=== PATIENT | female | born 1955 | race Caucasian/White ===

== ENCOUNTER 2017-06-23 10:39 | Inpatient (IN) | payer MEDICAID ==
[2017-06-23] MEDS: LIDOCAINE/MYLANTA 40 ML BTL PO (11:09)
[2017-06-23] MEDS: ONDANSETRON 4 MG INJ IV ×2 (11:09→19:51)
[2017-06-23] MEDS: morphine 4 MG/ML VIAL IV (11:09)
[2017-06-23 11:15] LABS: ADD MAN DIFF? NO
[2017-06-23 11:18] LABS: BASOPHIL # 0.1 10^3/ul (0.0-0.1); BASOPHILS % 0.5 % (0.0-2.0); EOSINOPHILS # 0.1 10^3/ul (0.0-0.5); EOSINOPHILS % 0.5 % (0.0-7.0); HEMATOCRIT 38.6 % (37.0-47.0); HEMOGLOBIN 13.4 g/dl (12.0-16.0); LYMPHOCYTES # 1.2 10^3/ul (0.8-2.9); LYMPHOCYTES % 10.6 % (15.0-51.0); MEAN CORPUSCULAR HEMOGLOBIN 29.6 pg (29.0-33.0); MEAN CORPUSCULAR HGB CONC 34.7 g/dl (32.0-37.0); MEAN CORPUSCULAR VOLUME 85.4 fl (82.0-101.0); MEAN PLATELET VOLUME 10.9 fl (7.4-10.4); MONOCYTE # 0.5 10^3/ul (0.3-0.9); MONOCYTES % 4.2 % (0.0-11.0); NEUTROPHIL # 9.2 10^3/ul (1.6-7.5); NEUTROPHILS % 83.8 % (39.0-77.0); PLATELET COUNT 344 10^3/UL (140-415); RED BLOOD COUNT 4.52 10^6/ul (4.20-5.40); RED CELL DISTRIBUTION WIDTH 12.8 % (11.5-14.5)
[2017-06-23 11:18] LABS: WHITE BLOOD COUNT 10.9 10^3/ul (4.8-10.8)
[2017-06-23 11:40] LABS: ALANINE AMINOTRANSFERASE 35 IU/L (13-69); ALBUMIN 4.7 g/dl (3.3-4.9); ALKALINE PHOSPHATASE 140 IU/L (42-121); ANION GAP 17 (8-16); ASPARTATE AMINO TRANSFERASE 23 IU/L (15-46); BILIRUBIN,INDIRECT 0.4 mg/dl (0-1.1); BILIRUBIN,TOTAL 0.4 mg/dl (0.2-1.3); BLOOD UREA NITROGEN 10 mg/dl (7-20); CALCIUM 10.3 mg/dl (8.4-10.2); CARBON DIOXIDE 29 mmol/L (21-31); CHLORIDE 99 mmol/L (97-110); GLUCOSE 252 mg/dl (70-220); POTASSIUM 3.7 mmol/L (3.5-5.1); SODIUM 141 mmol/L (135-144); TOTAL PROTEIN 8.6 g/dl (6.1-8.1)
[2017-06-23 11:46] LABS: ADD UMIC YES; UR ASCORBIC ACID 20 mg/dL (NEGATIVE); UR BACTERIA FEW /HPF (NONE SEEN); UR BILIRUBIN (Dip) NEGATIVE (NEGATIVE); UR BLOOD (Dip) NEGATIVE (NEGATIVE); UR CLARITY SLIGHTLY CLOUDY (CLEAR); UR COLOR YELLOW (YELLOW); UR GLUCOSE (Dip) 1+ mg/dL (NEGATIVE); UR KETONES (Dip) NEGATIVE (NEGATIVE); UR LEUKOCYTE ESTERASE (Dip) NEGATIVE Leu/ul (NEGATIVE); UR MUCUS FEW /HPF (NONE SEEN); UR NITRITE (Dip) NEGATIVE (NEGATIVE); UR RBC 1 /HPF (0-5); UR SPECIFIC GRAVITY (Dip) 1.016 (1.003-1.030); UR TOTAL PROTEIN (Dip) 1+ mg/dl (NEGATIVE); UR UROBILINOGEN (Dip) NEGATIVE (NEGATIVE); UR WBC 1 /HPF (0-5)
[2017-06-23 12:00] LABS: LIPASE 3925 U/L (23-300); TROPONIN-I < 0.012 ng/ml (0.00-0.12)
[2017-06-23] MEDS: SOD CHLORIDE 0.9% 1,000 ML IV ×3 (12:13→22:13)
[2017-06-23] MEDS ORDERED: ACETAMINOPHEN 325 MG TAB PO (13:00)
[2017-06-23] MEDS ORDERED: ONDANSETRON 4 MG INJ IV (13:00)
[2017-06-23] MEDS: HYDROmorphONE 1 MG/ML SYG IV (13:44)
[2017-06-23] MEDS: morphine 2 MG INJ IV ×2 (19:49→23:54)
[2017-06-23] MEDS: FAMOTIDINE 20 MG INJ IV (20:33)
[2017-06-23] MEDS: DOCUSATE SODIUM 100 MG CAP PO (20:35)
[2017-06-24] MEDS: ONDANSETRON 4 MG INJ IV ×3 (02:27→20:19)
[2017-06-24] MEDS: morphine 2 MG INJ IV ×5 (04:03→22:33)
[2017-06-24] MEDS: SOD CHLORIDE 0.9% 1,000 ML IV ×3 (05:30→20:17)
[2017-06-24] MEDS: hydrALAzine 20 MG INJ IV ×2 (05:34→20:26)
[2017-06-24 05:44] LABS: ADD MAN DIFF? NO
[2017-06-24 05:46] LABS: WHITE BLOOD COUNT 12.9 10^3/ul (4.8-10.8)
[2017-06-24 05:46] LABS: BASOPHILS % 0.3 % (0.0-2.0); EOSINOPHILS % 0.1 % (0.0-7.0); HEMATOCRIT 37.1 % (37.0-47.0); HEMOGLOBIN 12.8 g/dl (12.0-16.0); LYMPHOCYTES # 1.1 10^3/ul (0.8-2.9); LYMPHOCYTES % 8.8 % (15.0-51.0); MEAN CORPUSCULAR HEMOGLOBIN 29.6 pg (29.0-33.0); MEAN CORPUSCULAR HGB CONC 34.5 g/dl (32.0-37.0); MEAN CORPUSCULAR VOLUME 85.9 fl (82.0-101.0); MEAN PLATELET VOLUME 11.1 fl (7.4-10.4); MONOCYTE # 0.6 10^3/ul (0.3-0.9); MONOCYTES % 4.3 % (0.0-11.0); NEUTROPHIL # 11.1 10^3/ul (1.6-7.5); NEUTROPHILS % 86.1 % (39.0-77.0); PLATELET COUNT 311 10^3/UL (140-415); RED BLOOD COUNT 4.32 10^6/ul (4.20-5.40); RED CELL DISTRIBUTION WIDTH 12.5 % (11.5-14.5)
[2017-06-24 06:29] LABS: AMYLASE 178 U/L (11-123); ANION GAP 16 (8-16); BLOOD UREA NITROGEN 7 mg/dl (7-20); CALCIUM 9.1 mg/dl (8.4-10.2); CARBON DIOXIDE 26 mmol/L (21-31); CHLORIDE 99 mmol/L (97-110); CHOL/HDL RATIO 4.5 RATIO; CHOLESTEROL 215 mg/dl (100-200); GLUCOSE 183 mg/dl (70-220); HDL CHOLESTEROL 47 mg/dl (35-98); LDL CHOLESTEROL,CALCULATED 152 mg/dl; MAGNESIUM 1.7 mg/dl (1.7-2.5); PHOSPHORUS 3.3 mg/dl (2.5-4.9); POTASSIUM 3.5 mmol/L (3.5-5.1); SODIUM 137 mmol/L (135-144); TRIGLYCERIDES 79 mg/dl (0-149)
[2017-06-24 07:25] LABS: HEMOGLOBIN A1C 7.5 % (0-5.9)
[2017-06-24] MEDS: DOCUSATE SODIUM 100 MG CAP PO ×2 (09:00→20:13)
[2017-06-24] MEDS: FAMOTIDINE 20 MG INJ IV ×2 (09:24→20:18)
[2017-06-24] MEDS: MULTIVITAMINS 10 ML, THIAMINE 100 MG, FOLIC ACID 1 MG in SOD CHLORIDE 0.9% 1,000 ML IVPB (09:35)
[2017-06-24 14:09] LABS: LIPASE 1171 U/L (23-300)
[2017-06-24] MEDS ORDERED: GLUCOSE GEL 15 GRAM TUBE PO ×2 (14:30)
[2017-06-24] MEDS ORDERED: DEXTROSE 50% 50 ML SYRINGE IV ×2 (14:30)
[2017-06-24] MEDS ORDERED: GLUCAGON 1 MG INJ IM (14:30)
[2017-06-24] MEDS ORDERED: GLUCOSE GEL 15 GRAM TUBE BUCCAL (14:30)
[2017-06-24] MEDS: INSULIN ASPART [NOVOLOG] 3 ML PEN SC ×2 (17:01→20:23)
[2017-06-25] MEDS: INSULIN ASPART [NOVOLOG] 3 ML PEN SC ×6 (01:06→20:26)
[2017-06-25] MEDS ORDERED: ACCU-CHEK XX (02:00)
[2017-06-25] MEDS: ONDANSETRON 4 MG INJ IV (04:05)
[2017-06-25] MEDS: SOD CHLORIDE 0.9% 1,000 ML IV ×2 (04:05→13:30)
[2017-06-25 07:10] LABS: ADD MAN DIFF? NO
[2017-06-25 07:16] LABS: BASOPHILS % 0.3 % (0.0-2.0); EOSINOPHILS % 0.1 % (0.0-7.0); HEMATOCRIT 35.7 % (37.0-47.0); HEMOGLOBIN 12.4 g/dl (12.0-16.0); LYMPHOCYTES # 1.9 10^3/ul (0.8-2.9); LYMPHOCYTES % 15.1 % (15.0-51.0); MEAN CORPUSCULAR HEMOGLOBIN 29.5 pg (29.0-33.0); MEAN CORPUSCULAR HGB CONC 34.7 g/dl (32.0-37.0); MEAN PLATELET VOLUME 11.1 fl (7.4-10.4); NEUTROPHIL # 9.8 10^3/ul (1.6-7.5); NEUTROPHILS % 76.2 % (39.0-77.0); PLATELET COUNT 304 10^3/UL (140-415); RED CELL DISTRIBUTION WIDTH 12.8 % (11.5-14.5)
[2017-06-25 07:16] LABS: WHITE BLOOD COUNT 12.8 10^3/ul (4.8-10.8)
[2017-06-25 07:31] LABS: AMYLASE 62 U/L (11-123); ANION GAP 12 (8-16); BLOOD UREA NITROGEN 11 mg/dl (7-20); CALCIUM 9.1 mg/dl (8.4-10.2); CARBON DIOXIDE 27 mmol/L (21-31); CHLORIDE 98 mmol/L (97-110); CREATININE 0.56 mg/dl (0.44-1.00); GLUCOSE 139 mg/dl (70-220); POTASSIUM 3.3 mmol/L (3.5-5.1); SODIUM 134 mmol/L (135-144)
[2017-06-25 07:31] LABS: LIPASE 164 U/L (23-300)
[2017-06-25] MEDS: DOCUSATE SODIUM 100 MG CAP PO ×2 (09:00→20:30)
[2017-06-25] MEDS: FAMOTIDINE 20 MG INJ IV ×2 (09:05→20:25)
[2017-06-25] MEDS: MULTIVITAMINS 10 ML, THIAMINE 100 MG, FOLIC ACID 1 MG in SOD CHLORIDE 0.9% 1,000 ML IVPB (09:05)
[2017-06-25] MEDS: POTASSIUM CHLORIDE (SR) 20 MEQ TAB PO ×2 (15:24→17:35)
[2017-06-25] MEDS: metFORMIN 500 MG TAB PO (17:35)
[2017-06-25] MEDS ORDERED: SOD CHLORIDE 0.9% 100 ML (18:15)
[2017-06-25] MEDS ORDERED: IOHEXOL 300MG/ML 150 ML BTL (18:15)
[2017-06-26] MEDS: SOD CHLORIDE 0.9% 1,000 ML IV ×3 (00:21→16:21)
[2017-06-26 06:19] LABS: ADD MAN DIFF? NO
[2017-06-26 06:27] LABS: BASOPHIL # 0.1 10^3/ul (0.0-0.1); BASOPHILS % 0.6 % (0.0-2.0); EOSINOPHILS # 0.1 10^3/ul (0.0-0.5); EOSINOPHILS % 0.9 % (0.0-7.0); HEMATOCRIT 33.4 % (37.0-47.0); HEMOGLOBIN 11.4 g/dl (12.0-16.0); LYMPHOCYTES # 2.5 10^3/ul (0.8-2.9); LYMPHOCYTES % 26.7 % (15.0-51.0); MEAN CORPUSCULAR HEMOGLOBIN 29.7 pg (29.0-33.0); MEAN CORPUSCULAR HGB CONC 34.1 g/dl (32.0-37.0); MONOCYTE # 0.8 10^3/ul (0.3-0.9); NEUTROPHILS % 63.7 % (39.0-77.0); PLATELET COUNT 286 10^3/UL (140-415); RED BLOOD COUNT 3.84 10^6/ul (4.20-5.40); RED CELL DISTRIBUTION WIDTH 13.1 % (11.5-14.5)
[2017-06-26 06:27] LABS: WHITE BLOOD COUNT 9.5 10^3/ul (4.8-10.8)
[2017-06-26 07:03] LABS: LIPASE 37 U/L (23-300)
[2017-06-26 07:06] LABS: ANION GAP 13 (8-16); BLOOD UREA NITROGEN 9 mg/dl (7-20); CARBON DIOXIDE 24 mmol/L (21-31); CHLORIDE 105 mmol/L (97-110); CREATININE 0.63 mg/dl (0.44-1.00); GLUCOSE 126 mg/dl (70-220); POTASSIUM 3.4 mmol/L (3.5-5.1); SODIUM 139 mmol/L (135-144)
[2017-06-26 07:12] LABS: CANCER ANTIGEN 125 6.8 U/ml (0.0-35.0)
[2017-06-26 07:23] LABS: CANCER ANTIGEN 19-9 < 1.4 U/ml (0.0-37.0)
[2017-06-26 07:24] LABS: ALPHA FETOPROTEIN 1.86 IU/L (0.00-7.21)
[2017-06-26] MEDS: metFORMIN 500 MG TAB PO ×2 (07:54→17:22)
[2017-06-26] MEDS: INSULIN ASPART [NOVOLOG] 3 ML PEN SC ×4 (07:56→20:21)
[2017-06-26] MEDS: DOCUSATE SODIUM 100 MG CAP PO ×2 (09:00→20:24)
[2017-06-26] MEDS: MULTIVITAMINS THERAPEUTIC TAB PO (09:08)
[2017-06-26] MEDS: FAMOTIDINE 20 MG INJ IV ×2 (09:08→20:24)
[2017-06-26] MEDS: THIAMINE 100 MG TAB PO (09:08)
[2017-06-26] MEDS: FOLIC ACID 1 MG TAB PO (09:08)
[2017-06-26] MEDS: POTASSIUM CHLORIDE (SR) 20 MEQ TAB PO (12:21)
[2017-06-26] MEDS: morphine 2 MG INJ IV (18:06)
[2017-06-26] MEDS: INFLUENZA VIRUS VACCINE 0.5 ML (DISPENSING) IM* (22:28)
[2017-06-27] MEDS: SOD CHLORIDE 0.9% 1,000 ML IV (07:22)
[2017-06-27 07:39] LABS: ALANINE AMINOTRANSFERASE 33 IU/L (13-69); ALBUMIN 3.5 g/dl (3.3-4.9); ALBUMIN/GLOBULIN RATIO 1.02; ALKALINE PHOSPHATASE 91 IU/L (42-121); AMYLASE 36 U/L (11-123); ANION GAP 13 (8-16); ASPARTATE AMINO TRANSFERASE 22 IU/L (15-46); BILIRUBIN,INDIRECT 0.1 mg/dl (0-1.1); BILIRUBIN,TOTAL 0.1 mg/dl (0.2-1.3); BLOOD UREA NITROGEN 10 mg/dl (7-20); CALCIUM 9.2 mg/dl (8.4-10.2); CARBON DIOXIDE 27 mmol/L (21-31); CHLORIDE 104 mmol/L (97-110); CREATININE 0.63 mg/dl (0.44-1.00); GLUCOSE 154 mg/dl (70-220); LIPASE 41 U/L (23-300); POTASSIUM 3.6 mmol/L (3.5-5.1); SODIUM 140 mmol/L (135-144); TOTAL PROTEIN 6.9 g/dl (6.1-8.1)
[2017-06-27] MEDS: INSULIN ASPART [NOVOLOG] 3 ML PEN SC ×2 (08:43→12:00)
[2017-06-27] MEDS: MULTIVITAMINS THERAPEUTIC TAB PO (08:44)
[2017-06-27] MEDS: FOLIC ACID 1 MG TAB PO (08:44)
[2017-06-27] MEDS: metFORMIN 500 MG TAB PO (08:44)
[2017-06-27] MEDS: DOCUSATE SODIUM 100 MG CAP PO (08:44)
[2017-06-27] MEDS: FAMOTIDINE 20 MG INJ IV (08:44)
[2017-06-27] MEDS: THIAMINE 100 MG TAB PO (08:44)
[2017-06-27] MEDS: POTASSIUM CHLORIDE (SR) 20 MEQ TAB PO (12:33)
== END 2017-06-27 14:32 | disposition home or self-care (01) | DRG 439 ==
LOC: E/R 10:39 → PP2 12:51
DX: K85.90 Acute pancreatitis without necrosis or infection, unspecified (principal); C25.0 Malignant neoplasm of head of pancreas; E11.65 Type 2 diabetes mellitus with hyperglycemia; I10 Essential (primary) hypertension; E04.2 Nontoxic multinodular goiter; K57.30 Diverticulosis of large intestine without perforation or abscess without bleeding
CPT/HCPCS: 36415; 71260; 74176; 74183; 76705; 80048; 80053; 80061; 81001; 82105; 82150; 82378; 82962; 83036; 83690; 83735; 84100; 84439; 84443; 84484; 85025; 86301; 86304; 90686; 93005; 96361; 96374; 96375; 99285-25

== ENCOUNTER 2017-08-22 23:45 | Emergency (ER) | payer OTHER, MEDICAID ==
[2017-08-23] MEDS: ONDANSETRON 4 MG INJ IV (01:16)
[2017-08-23] MEDS: SOD CHLORIDE 0.9% 500 ML IV (01:16)
[2017-08-23] MEDS: morphine 4 MG/ML VIAL IV (01:16)
[2017-08-23] MEDS: LIDOCAINE/MYLANTA 40 ML BTL PO (01:16)
[2017-08-23] MEDS: FAMOTIDINE 20 MG INJ IV (01:16)
[2017-08-23 01:28] LABS: ADD MAN DIFF? NO
[2017-08-23 01:31] LABS: WHITE BLOOD COUNT 7.7 10^3/ul (4.8-10.8)
[2017-08-23 01:31] LABS: ABNORMAL IP MESSAGE 1; BASOPHILS % 0.5 % (0.0-2.0); EOSINOPHILS # 0.1 10^3/ul (0.0-0.5); EOSINOPHILS % 1.4 % (0.0-7.0); HEMATOCRIT 38.4 % (37.0-47.0); LYMPHOCYTES # 2.2 10^3/ul (0.8-2.9); LYMPHOCYTES % 27.9 % (15.0-51.0); MEAN CORPUSCULAR HEMOGLOBIN 28.7 pg (29.0-33.0); MEAN CORPUSCULAR HGB CONC 33.9 g/dl (32.0-37.0); MEAN CORPUSCULAR VOLUME 84.8 fl (82.0-101.0); MEAN PLATELET VOLUME 13.1 fl (7.4-10.4); MONOCYTE # 0.6 10^3/ul (0.3-0.9); MONOCYTES % 7.4 % (0.0-11.0); NEUTROPHIL # 4.8 10^3/ul (1.6-7.5); NEUTROPHILS % 62.5 % (39.0-77.0); PLATELET COUNT 221 10^3/UL (140-415); POSITIVE DIFF @See below; RED BLOOD COUNT 4.53 10^6/ul (4.20-5.40); RED CELL DISTRIBUTION WIDTH 12.7 % (11.5-14.5)
[2017-08-23 01:33] LABS: ADD UMIC YES; UR ASCORBIC ACID NEGATIVE (NEGATIVE); UR BILIRUBIN (Dip) NEGATIVE (NEGATIVE); UR BLOOD (Dip) 1+ mg/dL (NEGATIVE); UR CLARITY CLEAR (CLEAR); UR COLOR YELLOW (YELLOW); UR GLUCOSE (Dip) 3+ mg/dL (NEGATIVE); UR KETONES (Dip) 2+ mg/dL (NEGATIVE); UR LEUKOCYTE ESTERASE (Dip) NEGATIVE Leu/ul (NEGATIVE); UR NITRITE (Dip) NEGATIVE (NEGATIVE); UR RBC 1 /HPF (0-5); UR SPECIFIC GRAVITY (Dip) 1.037 (1.003-1.030); UR TOTAL PROTEIN (Dip) 1+ mg/dl (NEGATIVE); UR UROBILINOGEN (Dip) NEGATIVE (NEGATIVE); UR WBC 3 /HPF (0-5)
[2017-08-23 02:00] LABS: ALANINE AMINOTRANSFERASE 24 IU/L (13-69); ALBUMIN 4.8 g/dl (3.3-4.9); ALBUMIN/GLOBULIN RATIO 1.37; ALKALINE PHOSPHATASE 147 IU/L (42-121); ANION GAP 25 (8-16); ASPARTATE AMINO TRANSFERASE 34 IU/L (15-46); BLOOD UREA NITROGEN 12 mg/dl (7-20); CALCIUM 10.2 mg/dl (8.4-10.2); CARBON DIOXIDE 21 mmol/L (21-31); CHLORIDE 99 mmol/L (97-110); CREATININE 0.65 mg/dl (0.44-1.00); GLUCOSE 366 mg/dl (70-220); LIPASE 97 U/L (23-300); POTASSIUM 4.4 mmol/L (3.5-5.1); SODIUM 141 mmol/L (135-144); TOTAL PROTEIN 8.3 g/dl (6.1-8.1)
[2017-08-23 02:12] LABS: TROPONIN-I < 0.012 ng/ml (0.00-0.12)
== END 2017-08-23 04:06 | disposition home or self-care (01) ==
LOC: E/R 23:45
DX: R10.13 Epigastric pain (principal); Z79.84 Long term (current) use of oral hypoglycemic drugs; Z87.891 Personal history of nicotine dependence
CPT/HCPCS: 71045; 80053; 81001; 83690; 84484; 85025; 93005; 96374; 96375; 99285-25

== ENCOUNTER 2017-08-24 11:50 | Emergency (ER) | payer OTHER | END 2017-08-24 14:07 | disposition home or self-care (01) | LOC: FTE 11:50 | DX: K59.00 Constipation, unspecified (principal); F17.210 Nicotine dependence, cigarettes, uncomplicated; Z79.84 Long term (current) use of oral hypoglycemic drugs | CPT/HCPCS: 99282; Z7502 ==

== ENCOUNTER 2017-09-03 15:00 | Inpatient (IN) | payer OTHER ==
[2017-09-03] MEDS: morphine 4 MG/ML VIAL IV ×2 (15:44→18:21)
[2017-09-03] MEDS: ONDANSETRON 4 MG INJ IV ×3 (15:44→20:40)
[2017-09-03] MEDS: SOD CHLORIDE 0.9% 1,000 ML IV ×4 (15:44→22:17)
[2017-09-03 15:48] LABS: ADD MAN DIFF? NO
[2017-09-03 15:50] LABS: WHITE BLOOD COUNT 8.3 10^3/ul (4.8-10.8)
[2017-09-03 15:50] LABS: ABNORMAL IP MESSAGE 1; BASOPHILS % 0.4 % (0.0-2.0); HEMATOCRIT 43.1 % (37.0-47.0); HEMOGLOBIN 14.5 g/dl (12.0-16.0); LYMPHOCYTES # 1.1 10^3/ul (0.8-2.9); LYMPHOCYTES % 13.5 % (15.0-51.0); MEAN CORPUSCULAR HEMOGLOBIN 28.4 pg (29.0-33.0); MEAN CORPUSCULAR HGB CONC 33.6 g/dl (32.0-37.0); MEAN CORPUSCULAR VOLUME 84.3 fl (82.0-101.0); MEAN PLATELET VOLUME 13.6 fl (7.4-10.4); MONOCYTE # 0.4 10^3/ul (0.3-0.9); MONOCYTES % 4.2 % (0.0-11.0); NEUTROPHIL # 6.8 10^3/ul (1.6-7.5); NEUTROPHILS % 81.5 % (39.0-77.0); PLATELET COUNT 208 10^3/UL (140-415); RED BLOOD COUNT 5.11 10^6/ul (4.20-5.40); RED CELL DISTRIBUTION WIDTH 13.9 % (11.5-14.5)
[2017-09-03 15:52] LABS: POSITIVE DIFF @See below
[2017-09-03 15:55] LABS: ADD UMIC YES; UR ASCORBIC ACID NEGATIVE (NEGATIVE); UR BILIRUBIN (Dip) NEGATIVE (NEGATIVE); UR BLOOD (Dip) 1+ mg/dL (NEGATIVE); UR CLARITY SLIGHTLY CLOUDY (CLEAR); UR COLOR YELLOW (YELLOW); UR GLUCOSE (Dip) 3+ mg/dL (NEGATIVE); UR HYALINE CAST FEW /HPF (NONE SEEN); UR KETONES (Dip) 2+ mg/dL (NEGATIVE); UR LEUKOCYTE ESTERASE (Dip) 1+ Leu/ul (NEGATIVE); UR MUCUS FEW /HPF (NONE SEEN); UR NITRITE (Dip) NEGATIVE (NEGATIVE); UR RBC 1 /HPF (0-5); UR SPECIFIC GRAVITY (Dip) 1.025 (1.003-1.030); UR TOTAL PROTEIN (Dip) 2+ mg/dl (NEGATIVE); UR UROBILINOGEN (Dip) NEGATIVE (NEGATIVE); UR WBC 28 /HPF (0-5)
[2017-09-03 16:30] LABS: ALANINE AMINOTRANSFERASE 107 IU/L (13-69); ALBUMIN 4.9 g/dl (3.3-4.9); ALBUMIN/GLOBULIN RATIO 1.13; ALKALINE PHOSPHATASE 938 IU/L (42-121); ANION GAP 37 (8-16); ASPARTATE AMINO TRANSFERASE 43 IU/L (15-46); BILIRUBIN,INDIRECT 0.2 mg/dl (0-1.1); BILIRUBIN,TOTAL 0.2 mg/dl (0.2-1.3); BLOOD UREA NITROGEN 8 mg/dl (7-20); CALCIUM 10.7 mg/dl (8.4-10.2); CHLORIDE 105 mmol/L (97-110); CREATININE 0.83 mg/dl (0.44-1.00); LIPASE 34 U/L (23-300); POTASSIUM 3.5 mmol/L (3.5-5.1); SODIUM 146 mmol/L (135-144); TOTAL PROTEIN 9.2 g/dl (6.1-8.1)
[2017-09-03 16:35] LABS: CARBON DIOXIDE 8 mmol/L (21-31)
[2017-09-03 16:37] LABS: GLUCOSE 415 mg/dl (70-220)
[2017-09-03 17:03] LABS: PHOSPHORUS 3.9 mg/dl (2.5-4.9)
[2017-09-03 17:03] LABS: MAGNESIUM 1.6 mg/dl (1.7-2.5)
[2017-09-03] MEDS: POTASSIUM CHLORIDE (SR) 20 MEQ TAB PO (17:10)
[2017-09-03] MEDS: INSULIN HUMAN REGULAR 100 UNIT in SOD CHLORIDE 0.9% 99 ML IV ×3 (17:29→22:16)
[2017-09-03] MEDS: POTASSIUM CHLORIDE 40 MEQ in SOD CHLORIDE 0.9% 250 ML IV (17:30)
[2017-09-03 17:53] LABS: MODE ROOM AIR; MetHgb Venous 0.4 %; Sample Type Blood venous; Site VENOUS LINE; Venous COHb 0.3 %; Venous Fraction OxyHgb 61.5 %; Venous Oxygen Sat 61.9 mmHG (55.0-75.0); Venous Total Hemglobin 12.3 g/dl
[2017-09-03] MEDS: LACTATED RINGER'S 1,000 ML IV ×2 (17:55→23:09)
[2017-09-03] MEDS ORDERED: DEXTROSE 50% 50 ML SYRINGE IV ×4 (18:00→21:30)
[2017-09-03] MEDS ORDERED: BISACODYL (EC) 5 MG TAB PO (19:30)
[2017-09-03] MEDS ORDERED: DOCUSATE SODIUM 100 MG CAP PO (19:30)
[2017-09-03] MEDS ORDERED: MAGNESIUM HYDROXIDE 30ML CUP PO (19:30)
[2017-09-03 19:46] LABS: LACTIC ACID 1.6 mmol/L (0.5-2.0)
[2017-09-03] MEDS: ACCU-CHEK XX ×2 (22:08→23:09)
[2017-09-03] MEDS: DEXTROSE 5%-0.9% NACL 1,000 ML IV (22:47)
[2017-09-03] MEDS ORDERED: MAGNESIUM SULFATE (GM) 50% 2 ML INJ IVPB (23:00)
[2017-09-03] MEDS: MAGNESIUM SULFATE 1 GM/D5W 100 ML IVPB (23:14)
[2017-09-03 23:57] LABS: GLUCOSE, FASTING 110 mg/dl (70-110)
[2017-09-04 00:01] LABS: HEMOGLOBIN A1C 11.5 % (0-5.9)
[2017-09-04] MEDS: ACCU-CHEK XX ×18 (00:10→17:00)
[2017-09-04] MEDS: POTASSIUM CHLORIDE 40 MEQ in SOD CHLORIDE 0.9% 1,000 ML IV (00:13)
[2017-09-04] MEDS: ACETAMINOPHEN 650MG/20.3ML CUP PO ×2 (00:32→23:15)
[2017-09-04] MEDS: ONDANSETRON 4 MG INJ IV ×3 (02:52→20:52)
[2017-09-04 04:13] LABS: ADD MAN DIFF? NO
[2017-09-04 04:14] LABS: BASOPHILS % 0.4 % (0.0-2.0); EOSINOPHILS # 0.1 10^3/ul (0.0-0.5); EOSINOPHILS % 0.8 % (0.0-7.0); HEMATOCRIT 29.1 % (37.0-47.0); HEMOGLOBIN 10.2 g/dl (12.0-16.0); MEAN CORPUSCULAR HEMOGLOBIN 28.8 pg (29.0-33.0); MEAN CORPUSCULAR HGB CONC 35.1 g/dl (32.0-37.0); MEAN CORPUSCULAR VOLUME 82.2 fl (82.0-101.0); MEAN PLATELET VOLUME 12.9 fl (7.4-10.4); MONOCYTE # 0.8 10^3/ul (0.3-0.9); MONOCYTES % 10.7 % (0.0-11.0); NEUTROPHIL # 4.7 10^3/ul (1.6-7.5); PLATELET COUNT 144 10^3/UL (140-415); RED BLOOD COUNT 3.54 10^6/ul (4.20-5.40)
[2017-09-04 04:14] LABS: WHITE BLOOD COUNT 7.6 10^3/ul (4.8-10.8)
[2017-09-04 04:40] LABS: ALANINE AMINOTRANSFERASE 63 IU/L (13-69); ALBUMIN 2.8 g/dl (3.3-4.9); ALBUMIN/GLOBULIN RATIO 0.96; ALKALINE PHOSPHATASE 479 IU/L (42-121); ANION GAP 15 (8-16); ASPARTATE AMINO TRANSFERASE 28 IU/L (15-46); BILIRUBIN,INDIRECT 0.2 mg/dl (0-1.1); BILIRUBIN,TOTAL 0.2 mg/dl (0.2-1.3); BLOOD UREA NITROGEN 2 mg/dl (7-20); CALCIUM 7.8 mg/dl (8.4-10.2); CARBON DIOXIDE 18 mmol/L (21-31); CHLORIDE 114 mmol/L (97-110); CREATININE 0.44 mg/dl (0.44-1.00); GLUCOSE 121 mg/dl (70-220); PHOSPHORUS 0.9 mg/dl (2.5-4.9); POTASSIUM 3.1 mmol/L (3.5-5.1); SODIUM 144 mmol/L (135-144); TOTAL PROTEIN 5.7 g/dl (6.1-8.1)
[2017-09-04 04:41] LABS: PHOSPHORUS 1.2 mg/dl (2.5-4.9)
[2017-09-04] MEDS ORDERED: DEXTROSE 50% 50 ML SYRINGE IV ×4 (05:30→15:00)
[2017-09-04 05:31] LABS: MAGNESIUM 1.3 mg/dl (1.7-2.5)
[2017-09-04] MEDS: PANTOPRAZOLE 40 MG INJ IV (06:09)
[2017-09-04] MEDS: DEXTROSE 5%-0.9% NACL 1,000 ML IV ×2 (06:17→15:21)
[2017-09-04] MEDS: INSULIN HUMAN REGULAR 100 UNIT in SOD CHLORIDE 0.9% 99 ML IV (07:26)
[2017-09-04] MEDS: MAGNESIUM SULFATE 3 GM in DEXTROSE 5% 100 ML IVPB (08:30)
[2017-09-04] MEDS: ENOXAPARIN 30 MG/0.3 ML SYG SC (08:50)
[2017-09-04] MEDS: POTASSIUM CHLORIDE 100 ML IVPB ×2 (09:40→11:39)
[2017-09-04] MEDS ORDERED: GLUCOSE GEL 15 GRAM TUBE BUCCAL (15:00)
[2017-09-04] MEDS ORDERED: GLUCAGON 1 MG INJ IM (15:00)
[2017-09-04] MEDS ORDERED: GLUCOSE GEL 15 GRAM TUBE PO ×2 (15:00)
[2017-09-04 15:35] LABS: ANION GAP 13 (8-16); CALCIUM 8.1 mg/dl (8.4-10.2); CARBON DIOXIDE 21 mmol/L (21-31); CHLORIDE 108 mmol/L (97-110); CREATININE 0.42 mg/dl (0.44-1.00); GLUCOSE 155 mg/dl (70-220); SODIUM 139 mmol/L (135-144)
[2017-09-04 15:42] LABS: BLOOD UREA NITROGEN < 2 mg/dl (7-20)
[2017-09-04 15:43] LABS: POTASSIUM 2.9 mmol/L (3.5-5.1)
[2017-09-04] MEDS: ACETAMINOPHEN 325 MG TAB PO (16:22)
[2017-09-04] MEDS: POTASSIUM PHOSPHATE 15 MM in SOD CHLORIDE 0.9% 250 ML IVPB (16:22)
[2017-09-04] MEDS: INSULIN GLARGINE [LANtus] 3 ML PEN SC (16:28)
[2017-09-04] MEDS: POTASSIUM CHLORIDE 30 MEQ in SOD CHLORIDE 0.9% 1,000 ML IV (17:34)
[2017-09-04] MEDS: INSULIN ASPART [NOVOLOG] 3 ML PEN SC ×2 (17:35→20:57)
[2017-09-04 21:55] LABS: ANION GAP 14 (8-16); CARBON DIOXIDE 23 mmol/L (21-31); CHLORIDE 108 mmol/L (97-110); CREATININE 0.51 mg/dl (0.44-1.00); GLUCOSE 165 mg/dl (70-220); POTASSIUM 3.2 mmol/L (3.5-5.1); SODIUM 142 mmol/L (135-144)
[2017-09-04 21:57] LABS: BLOOD UREA NITROGEN < 2 mg/dl (7-20)
[2017-09-05] MEDS: POTASSIUM CHLORIDE 30 MEQ in SOD CHLORIDE 0.9% 1,000 ML IV ×4 (00:41→20:48)
[2017-09-05] MEDS: ACCU-CHEK XX (02:01)
[2017-09-05 04:57] LABS: ADD MAN DIFF? NO
[2017-09-05 04:59] LABS: ABNORMAL IP MESSAGE 1; BASOPHILS % 0.7 % (0.0-2.0); EOSINOPHILS % 0.5 % (0.0-7.0); HEMATOCRIT 30.7 % (37.0-47.0); HEMOGLOBIN 10.9 g/dl (12.0-16.0); LYMPHOCYTES # 2.2 10^3/ul (0.8-2.9); LYMPHOCYTES % 36.4 % (15.0-51.0); MEAN CORPUSCULAR HEMOGLOBIN 28.8 pg (29.0-33.0); MEAN CORPUSCULAR HGB CONC 35.5 g/dl (32.0-37.0); MEAN CORPUSCULAR VOLUME 81.2 fl (82.0-101.0); MEAN PLATELET VOLUME 13.3 fl (7.4-10.4); MONOCYTE # 0.6 10^3/ul (0.3-0.9); MONOCYTES % 9.6 % (0.0-11.0); NEUTROPHIL # 3.2 10^3/ul (1.6-7.5); NEUTROPHILS % 52.5 % (39.0-77.0); PLATELET COUNT 145 10^3/UL (140-415); RED BLOOD COUNT 3.78 10^6/ul (4.20-5.40); RED CELL DISTRIBUTION WIDTH 14.2 % (11.5-14.5)
[2017-09-05] MEDS: PANTOPRAZOLE 40 MG INJ IV (05:14)
[2017-09-05 05:20] LABS: ALANINE AMINOTRANSFERASE 62 IU/L (13-69); ALBUMIN 2.9 g/dl (3.3-4.9); ALBUMIN/GLOBULIN RATIO 1.07; ALKALINE PHOSPHATASE 396 IU/L (42-121); ANION GAP 11 (8-16); ASPARTATE AMINO TRANSFERASE 20 IU/L (15-46); BILIRUBIN,INDIRECT 0.1 mg/dl (0-1.1); BILIRUBIN,TOTAL 0.1 mg/dl (0.2-1.3); CARBON DIOXIDE 24 mmol/L (21-31); CHLORIDE 111 mmol/L (97-110); CREATININE 0.42 mg/dl (0.44-1.00); GLUCOSE 111 mg/dl (70-220); MAGNESIUM 1.4 mg/dl (1.7-2.5); SODIUM 143 mmol/L (135-144); TOTAL PROTEIN 5.6 g/dl (6.1-8.1)
[2017-09-05 05:34] LABS: BLOOD UREA NITROGEN < 2 mg/dl (7-20)
[2017-09-05 05:36] LABS: POSITIVE DIFF @See below
[2017-09-05 05:37] LABS: POTASSIUM 2.8 mmol/L (3.5-5.1)
[2017-09-05] MEDS ORDERED: POTASSIUM CHLORIDE 20 MEQ POWDER FOR ORAL SOLN PO ×2 (06:00)
[2017-09-05] MEDS: POTASSIUM CHLORIDE 20 MEQ POWDER FOR ORAL SOLN PO (06:16)
[2017-09-05] MEDS: INSULIN ASPART [NOVOLOG] 3 ML PEN SC ×4 (08:07→20:48)
[2017-09-05] MEDS: INSULIN GLARGINE [LANtus] 3 ML PEN SC (08:09)
[2017-09-05] MEDS: ONDANSETRON 4 MG INJ IV ×2 (08:19→21:01)
[2017-09-05] MEDS: ENOXAPARIN 30 MG/0.3 ML SYG SC (09:08)
[2017-09-05] MEDS: ACETAMINOPHEN 325 MG TAB PO ×2 (11:21→23:08)
[2017-09-05] MEDS: POTASSIUM PHOSPHATE 15 MM in SOD CHLORIDE 0.9% 250 ML IVPB (11:23)
[2017-09-05] MEDS: MAGNESIUM SULFATE 3 GM in DEXTROSE 5% 100 ML IVPB (11:23)
[2017-09-05] MEDS: METOCLOPRAMIDE 5 MG TAB PO ×2 (17:36→17:37)
[2017-09-05 19:08] LABS: ANION GAP 14 (8-16); CALCIUM 8.4 mg/dl (8.4-10.2); CARBON DIOXIDE 26 mmol/L (21-31); CHLORIDE 104 mmol/L (97-110); CREATININE 0.46 mg/dl (0.44-1.00); GLUCOSE 174 mg/dl (70-220); PHOSPHORUS 2.7 mg/dl (2.5-4.9); POTASSIUM 3.6 mmol/L (3.5-5.1); SODIUM 140 mmol/L (135-144)
[2017-09-05 19:14] LABS: BLOOD UREA NITROGEN < 2 mg/dl (7-20)
[2017-09-06] MEDS: ACCU-CHEK XX (02:00)
[2017-09-06] MEDS: PANTOPRAZOLE 40 MG INJ IV (05:40)
[2017-09-06] MEDS: POTASSIUM CHLORIDE 30 MEQ in SOD CHLORIDE 0.9% 1,000 ML IV ×2 (05:47→21:37)
[2017-09-06 06:54] LABS: ALANINE AMINOTRANSFERASE 49 IU/L (13-69); ALBUMIN/GLOBULIN RATIO 1.15; ALKALINE PHOSPHATASE 364 IU/L (42-121); ANION GAP 13 (8-16); ASPARTATE AMINO TRANSFERASE 15 IU/L (15-46); CALCIUM 8.6 mg/dl (8.4-10.2); CARBON DIOXIDE 29 mmol/L (21-31); CHLORIDE 105 mmol/L (97-110); CREATININE 0.46 mg/dl (0.44-1.00); GLUCOSE 108 mg/dl (70-220); MAGNESIUM 1.6 mg/dl (1.7-2.5); PHOSPHORUS 3.2 mg/dl (2.5-4.9); POTASSIUM 3.4 mmol/L (3.5-5.1); SODIUM 144 mmol/L (135-144); TOTAL PROTEIN 5.6 g/dl (6.1-8.1)
[2017-09-06 06:56] LABS: BLOOD UREA NITROGEN < 2 mg/dl (7-20)
[2017-09-06] MEDS: METOCLOPRAMIDE 5 MG TAB PO ×3 (08:08→17:31)
[2017-09-06] MEDS: INSULIN ASPART [NOVOLOG] 3 ML PEN SC ×4 (08:09→20:28)
[2017-09-06] MEDS: ENOXAPARIN 30 MG/0.3 ML SYG SC (08:12)
[2017-09-06] MEDS: INSULIN GLARGINE [LANtus] 3 ML PEN SC (08:14)
[2017-09-06] MEDS: ACETAMINOPHEN 325 MG TAB PO ×2 (10:13→15:37)
[2017-09-06 14:57] LABS: CREATININE, RANDOM URINE 18 mg/dL (20-320); MICROALBUMIN 0.2 mg/dL; MICROALBUMIN/CREATININE RATIO 11 (<30)
[2017-09-06] MEDS: POTASSIUM CHLORIDE (SR) 20 MEQ TAB PO (15:45)
[2017-09-06] MEDS: MAGNESIUM SULFATE 3 GM in DEXTROSE 5% 100 ML IVPB (18:26)
[2017-09-07] MEDS: ACETAMINOPHEN 325 MG TAB PO ×3 (01:47→23:08)
[2017-09-07] MEDS: ACCU-CHEK XX (01:47)
[2017-09-07] MEDS: PANTOPRAZOLE 40 MG INJ IV (05:26)
[2017-09-07 06:23] LABS: ANION GAP 13 (8-16); BLOOD UREA NITROGEN 6 mg/dl (7-20); CALCIUM 8.8 mg/dl (8.4-10.2); CARBON DIOXIDE 27 mmol/L (21-31); CHLORIDE 106 mmol/L (97-110); CREATININE 0.48 mg/dl (0.44-1.00); GLUCOSE 179 mg/dl (70-220); POTASSIUM 4.2 mmol/L (3.5-5.1); SODIUM 142 mmol/L (135-144)
[2017-09-07] MEDS: LINAGLIPTIN 5 MG TABLET PO (08:07)
[2017-09-07] MEDS: METOCLOPRAMIDE 5 MG TAB PO ×3 (08:07→17:09)
[2017-09-07] MEDS: INSULIN ASPART [NOVOLOG] 3 ML PEN SC ×4 (08:11→20:24)
[2017-09-07] MEDS: INSULIN GLARGINE [LANtus] 3 ML PEN SC (08:12)
[2017-09-07] MEDS: ENOXAPARIN 30 MG/0.3 ML SYG SC (08:12)
[2017-09-07] MEDS: POTASSIUM CHLORIDE 30 MEQ in SOD CHLORIDE 0.9% 1,000 ML IV (09:01)
[2017-09-07] MEDS ORDERED: IBUPROFEN 400 MG TAB PO (15:30)
[2017-09-07] MEDS: ACETAMINOPHEN 650MG/20.3ML CUP PO (15:52)
[2017-09-08] MEDS: ACCU-CHEK XX (00:37)
[2017-09-08] MEDS: PANTOPRAZOLE 40 MG INJ IV (05:33)
[2017-09-08] MEDS: ACETAMINOPHEN 325 MG TAB PO ×2 (05:41→14:29)
[2017-09-08] MEDS: LINAGLIPTIN 5 MG TABLET PO (08:23)
[2017-09-08] MEDS: METOCLOPRAMIDE 5 MG TAB PO ×3 (08:23→17:26)
[2017-09-08] MEDS: ENOXAPARIN 30 MG/0.3 ML SYG SC (08:27)
[2017-09-08] MEDS: INSULIN GLARGINE [LANtus] 3 ML PEN SC (08:27)
[2017-09-08] MEDS: INSULIN ASPART [NOVOLOG] 3 ML PEN SC ×4 (08:27→21:31)
[2017-09-08 12:46] LABS: LIPASE 33 U/L (23-300)
== END 2017-09-08 21:45 | disposition home health service (06) | DRG 638 ==
LOC: MS2 20:20 → E/R 15:00 → ICU 18:01
DX: E11.10 Type 2 diabetes mellitus with ketoacidosis without coma (principal); E87.0 Hyperosmolality and hypernatremia; E87.2 Acidosis; E87.6 Hypokalemia; K86.9 Disease of pancreas, unspecified; Z90.49 Acquired absence of other specified parts of digestive tract; E83.39 Other disorders of phosphorus metabolism; E11.43 Type 2 diabetes mellitus with diabetic autonomic (poly)neuropathy; K31.84 Gastroparesis; T38.3X5A Adverse effect of insulin and oral hypoglycemic [antidiabetic] drugs, initial encounter
CPT/HCPCS: 36415; 71045; 74176; 80048; 80053; 81001; 82043; 82803; 82947; 82962; 83036; 83605; 83690; 83735; 84100; 85025; 87081; 93005; 96374; 96375; 96376; 99291-25

== ENCOUNTER 2017-09-29 11:47 | Inpatient (IN) | payer OTHER ==
[2017-09-29] MEDS: SOD CHLORIDE 0.9% 1,000 ML IV (13:00)
[2017-09-29 13:34] LABS: ADD MAN DIFF? NO
[2017-09-29 13:36] LABS: ABNORMAL IP MESSAGE 1; BASOPHIL # 0.1 10^3/ul (0.0-0.1); BASOPHILS % 0.8 % (0.0-2.0); EOSINOPHILS % 0.2 % (0.0-7.0); HEMATOCRIT 32.6 % (37.0-47.0); HEMOGLOBIN 11.5 g/dl (12.0-16.0); LYMPHOCYTES # 0.9 10^3/ul (0.8-2.9); LYMPHOCYTES % 8.8 % (15.0-51.0); MEAN CORPUSCULAR HGB CONC 35.3 g/dl (32.0-37.0); MEAN CORPUSCULAR VOLUME 82.3 fl (82.0-101.0); MEAN PLATELET VOLUME 13.3 fl (7.4-10.4); MONOCYTE # 0.4 10^3/ul (0.3-0.9); MONOCYTES % 4.2 % (0.0-11.0); NEUTROPHIL # 8.5 10^3/ul (1.6-7.5); NEUTROPHILS % 85.4 % (39.0-77.0); PLATELET COUNT 350 10^3/UL (140-415); RED BLOOD COUNT 3.96 10^6/ul (4.20-5.40); RED CELL DISTRIBUTION WIDTH 18.6 % (11.5-14.5)
[2017-09-29 13:36] LABS: WHITE BLOOD COUNT 9.9 10^3/ul (4.8-10.8)
[2017-09-29 13:44] LABS: ADD UMIC YES; UR ASCORBIC ACID NEGATIVE (NEGATIVE); UR BILIRUBIN (Dip) 2+ mg/dL (NEGATIVE); UR BLOOD (Dip) NEGATIVE (NEGATIVE); UR CLARITY CLEAR (CLEAR); UR COLOR AMBER (YELLOW); UR GLUCOSE (Dip) 3+ mg/dL (NEGATIVE); UR KETONES (Dip) 2+ mg/dL (NEGATIVE); UR LEUKOCYTE ESTERASE (Dip) NEGATIVE Leu/ul (NEGATIVE); UR NITRITE (Dip) NEGATIVE (NEGATIVE); UR RBC 1 /HPF (0-5); UR TOTAL PROTEIN (Dip) 1+ mg/dl (NEGATIVE); UR UROBILINOGEN (Dip) 2+ mg/dL (NEGATIVE); UR WBC 3 /HPF (0-5)
[2017-09-29 13:57] LABS: ALANINE AMINOTRANSFERASE 158 IU/L (13-69); ALBUMIN 4.3 g/dl (3.3-4.9); ALBUMIN/GLOBULIN RATIO 0.95; ALKALINE PHOSPHATASE 991 IU/L (42-121); ANION GAP 29 (8-16); ASPARTATE AMINO TRANSFERASE 239 IU/L (15-46); BILIRUBIN,INDIRECT 1.3 mg/dl (0-1.1); BILIRUBIN,TOTAL 14.2 mg/dl (0.2-1.3); BLOOD UREA NITROGEN 12 mg/dl (7-20); CALCIUM 9.7 mg/dl (8.4-10.2); CARBON DIOXIDE 17 mmol/L (21-31); CHLORIDE 97 mmol/L (97-110); CREATININE 0.67 mg/dl (0.44-1.00); GLUCOSE 312 mg/dl (70-220); LIPASE 19 U/L (23-300); POTASSIUM 4.1 mmol/L (3.5-5.1); SODIUM 139 mmol/L (135-144); TOTAL PROTEIN 8.8 g/dl (6.1-8.1)
[2017-09-29 14:09] LABS: TROPONIN-I < 0.012 ng/ml (0.00-0.12)
[2017-09-29 14:10] LABS: INR 1.12; PARTIAL THROMBOPLASTIN TIME 25.8 Sec (25.0-35.0); PROTIME 14.6 Sec (11.9-14.9); PT RATIO 1.1
[2017-09-29] MEDS: SOD CHLORIDE 0.9% 100 ML (14:42)
[2017-09-29] MEDS: IOHEXOL 100 ML (14:42)
[2017-09-29] MEDS: BARIUM SULFATE 0.1% 450 ML BTL (VOLUMEN) PO (18:39)
[2017-09-29] MEDS ORDERED: ONDANSETRON 4 MG INJ IV (19:00)
[2017-09-29] MEDS: DEXTROSE 5%-0.9% NACL 1,000 ML IV (20:24)
[2017-09-29] MEDS ORDERED: METOCLOPRAMIDE 10 MG TAB PO (20:30)
[2017-09-29] MEDS: CIPROFLOXACIN 400MG/D5W 200 ML IVPB (20:42)
[2017-09-29] MEDS: morphine 2 MG INJ IV (20:49)
[2017-09-29] MEDS ORDERED: GLUCOSE GEL 15 GRAM TUBE BUCCAL (21:00)
[2017-09-29] MEDS ORDERED: DEXTROSE 50% 50 ML SYRINGE IV ×2 (21:00)
[2017-09-29] MEDS ORDERED: GLUCOSE GEL 15 GRAM TUBE PO ×2 (21:00)
[2017-09-29] MEDS ORDERED: GLUCAGON 1 MG INJ IM (21:00)
[2017-09-29] MEDS: INSULIN ASPART [NOVOLOG] 3 ML PEN SC (22:08)
[2017-09-30] MEDS: INSULIN ASPART [NOVOLOG] 3 ML PEN SC ×6 (01:15→21:01)
[2017-09-30] MEDS ORDERED: ACCU-CHEK XX (02:00)
[2017-09-30] MEDS: morphine 2 MG INJ IV ×2 (02:42→15:59)
[2017-09-30 05:15] LABS: ADD MAN DIFF? NO
[2017-09-30] MEDS: PANTOPRAZOLE 40 MG INJ IV (05:18)
[2017-09-30 05:20] LABS: WHITE BLOOD COUNT 9.4 10^3/ul (4.8-10.8)
[2017-09-30 05:21] LABS: ABNORMAL IP MESSAGE 1; BASOPHIL # 0.1 10^3/ul (0.0-0.1); BASOPHILS % 0.6 % (0.0-2.0); EOSINOPHILS # 0.1 10^3/ul (0.0-0.5); EOSINOPHILS % 0.5 % (0.0-7.0); HEMATOCRIT 27.5 % (37.0-47.0); HEMOGLOBIN 9.9 g/dl (12.0-16.0); LYMPHOCYTES # 1.4 10^3/ul (0.8-2.9); LYMPHOCYTES % 14.8 % (15.0-51.0); MEAN CORPUSCULAR HEMOGLOBIN 28.9 pg (29.0-33.0); MEAN CORPUSCULAR VOLUME 80.4 fl (82.0-101.0); MEAN PLATELET VOLUME 13.6 fl (7.4-10.4); MONOCYTES % 10.1 % (0.0-11.0); NEUTROPHIL # 6.9 10^3/ul (1.6-7.5); NEUTROPHILS % 73.4 % (39.0-77.0); PLATELET COUNT 310 10^3/UL (140-415); RED BLOOD COUNT 3.42 10^6/ul (4.20-5.40); RED CELL DISTRIBUTION WIDTH 18.7 % (11.5-14.5)
[2017-09-30 05:22] LABS: POSITIVE DIFF @See below
[2017-09-30 05:56] LABS: ALANINE AMINOTRANSFERASE 153 IU/L (13-69); ALBUMIN 3.4 g/dl (3.3-4.9); ALBUMIN/GLOBULIN RATIO 0.91; ALKALINE PHOSPHATASE 765 IU/L (42-121); ANION GAP 23 (8-16); ASPARTATE AMINO TRANSFERASE 298 IU/L (15-46); BILIRUBIN,INDIRECT 1.3 mg/dl (0-1.1); BILIRUBIN,TOTAL 12.5 mg/dl (0.2-1.3); BLOOD UREA NITROGEN 10 mg/dl (7-20); CALCIUM 8.8 mg/dl (8.4-10.2); CARBON DIOXIDE 15 mmol/L (21-31); CHLORIDE 102 mmol/L (97-110); GLUCOSE 278 mg/dl (70-220); POTASSIUM 3.8 mmol/L (3.5-5.1); SODIUM 136 mmol/L (135-144); TOTAL PROTEIN 7.1 g/dl (6.1-8.1)
[2017-09-30] MEDS ORDERED: CEFAZOLIN 1 GM INJ (07:00)
[2017-09-30] MEDS: CIPROFLOXACIN 400MG/D5W 200 ML IVPB ×2 (08:31→21:02)
[2017-09-30] MEDS ORDERED: PANTOPRAZOLE (EC) 40 MG TAB PO (09:00)
[2017-09-30] MEDS: DEXTROSE 5%-0.9% NACL 1,000 ML IV ×2 (15:50→21:04)
[2017-09-30] MEDS: metroNIDAZOLE 500 MG/NS (PMX) 100 ML IVPB ×2 (17:00→22:30)
[2017-09-30] MEDS ORDERED: IOHEXOL 300MG/ML 30 ML BTL (17:37)
[2017-09-30] MEDS ORDERED: LIDOCAINE 100 MG SYRINGE (19:04)
[2017-09-30] MEDS ORDERED: PROPOFOL 20 ML (19:04)
[2017-09-30] MEDS ORDERED: SUGAMMADEX SODIUM 200 MG/2 ML VIAL IV (19:04)
[2017-09-30] MEDS ORDERED: ROCURONIUM 50 MG INJ (19:04)
[2017-09-30] MEDS ORDERED: SUCCINYLCHOLINE CHLORIDE 100 MG/5 ML SYG IV (19:04)
[2017-10-01] MEDS: INSULIN ASPART [NOVOLOG] 3 ML PEN SC ×5 (01:07→17:37)
[2017-10-01] MEDS: PANTOPRAZOLE 40 MG INJ IV (05:24)
[2017-10-01 05:51] LABS: ADD MAN DIFF? NO
[2017-10-01] MEDS: metroNIDAZOLE 500 MG/NS (PMX) 100 ML IVPB ×3 (05:54→21:54)
[2017-10-01 05:55] LABS: ABNORMAL IP MESSAGE 1; BASOPHILS % 0.3 % (0.0-2.0); EOSINOPHILS # 0.1 10^3/ul (0.0-0.5); EOSINOPHILS % 0.8 % (0.0-7.0); HEMATOCRIT 26.5 % (37.0-47.0); HEMOGLOBIN 9.4 g/dl (12.0-16.0); LYMPHOCYTES # 1.1 10^3/ul (0.8-2.9); LYMPHOCYTES % 12.1 % (15.0-51.0); MEAN CORPUSCULAR HEMOGLOBIN 29.3 pg (29.0-33.0); MEAN CORPUSCULAR HGB CONC 35.5 g/dl (32.0-37.0); MEAN CORPUSCULAR VOLUME 82.6 fl (82.0-101.0); MEAN PLATELET VOLUME 13.2 fl (7.4-10.4); MONOCYTE # 0.7 10^3/ul (0.3-0.9); MONOCYTES % 8.2 % (0.0-11.0); NEUTROPHIL # 6.8 10^3/ul (1.6-7.5); NEUTROPHILS % 77.9 % (39.0-77.0); PLATELET COUNT 265 10^3/UL (140-415); RED BLOOD COUNT 3.21 10^6/ul (4.20-5.40)
[2017-10-01 05:55] LABS: WHITE BLOOD COUNT 8.8 10^3/ul (4.8-10.8)
[2017-10-01 05:59] LABS: POSITIVE DIFF @See below
[2017-10-01 06:17] LABS: ALANINE AMINOTRANSFERASE 151 IU/L (13-69); ALBUMIN/GLOBULIN RATIO 0.93; ALKALINE PHOSPHATASE 673 IU/L (42-121); ANION GAP 17 (8-16); ASPARTATE AMINO TRANSFERASE 208 IU/L (15-46); BILIRUBIN,INDIRECT 1.6 mg/dl (0-1.1); BILIRUBIN,TOTAL 5.6 mg/dl (0.2-1.3); BLOOD UREA NITROGEN 7 mg/dl (7-20); CALCIUM 8.4 mg/dl (8.4-10.2); CARBON DIOXIDE 21 mmol/L (21-31); CHLORIDE 104 mmol/L (97-110); GLUCOSE 240 mg/dl (70-220); POTASSIUM 3.2 mmol/L (3.5-5.1); SODIUM 139 mmol/L (135-144); TOTAL PROTEIN 6.2 g/dl (6.1-8.1)
[2017-10-01] MEDS: CIPROFLOXACIN 400MG/D5W 200 ML IVPB ×2 (08:09→20:25)
[2017-10-01] MEDS: POTASSIUM CHLORIDE 100 ML IVPB ×2 (10:09→12:00)
[2017-10-01] MEDS: DEXTROSE 5%-0.9% NACL 1,000 ML IV ×2 (11:00→17:01)
[2017-10-01] MEDS: POTASSIUM CHLORIDE 20 MEQ POWDER FOR ORAL SOLN PO (12:41)
[2017-10-01] MEDS: morphine 2 MG INJ IV (17:38)
[2017-10-01] MEDS: SOD CHLORIDE 0.9% 1,000 ML IV (17:39)
[2017-10-01] MEDS ORDERED: INSULIN ASPART [NOVOLOG] 3 ML PEN SC (18:00)
[2017-10-01] MEDS: traMADol 50 MG TAB PO (20:25)
[2017-10-01] MEDS: INSULIN GLARGINE [LANtus] 3 ML PEN SC (20:36)
[2017-10-02] MEDS: INSULIN ASPART [NOVOLOG] 3 ML PEN SC ×4 (00:53→17:30)
[2017-10-02] MEDS ORDERED: ACCU-CHEK XX (02:00)
[2017-10-02 05:19] LABS: ADD MAN DIFF? NO
[2017-10-02 05:20] LABS: WHITE BLOOD COUNT 9.6 10^3/ul (4.8-10.8)
[2017-10-02 05:20] LABS: RED BLOOD COUNT 3.24 10^6/ul (4.20-5.40)
[2017-10-02 05:21] LABS: ABNORMAL IP MESSAGE 1; BASOPHIL # 0.1 10^3/ul (0.0-0.1); BASOPHILS % 0.8 % (0.0-2.0); EOSINOPHILS # 0.2 10^3/ul (0.0-0.5); EOSINOPHILS % 1.8 % (0.0-7.0); HEMATOCRIT 27.6 % (37.0-47.0); HEMOGLOBIN 9.4 g/dl (12.0-16.0); LYMPHOCYTES # 2.1 10^3/ul (0.8-2.9); LYMPHOCYTES % 21.3 % (15.0-51.0); MEAN CORPUSCULAR HGB CONC 34.1 g/dl (32.0-37.0); MEAN CORPUSCULAR VOLUME 85.2 fl (82.0-101.0); MEAN PLATELET VOLUME 13.3 fl (7.4-10.4); MONOCYTES % 9.9 % (0.0-11.0); NEUTROPHIL # 6.3 10^3/ul (1.6-7.5); NEUTROPHILS % 65.2 % (39.0-77.0); PLATELET COUNT 268 10^3/UL (140-415)
[2017-10-02 05:32] LABS: POSITIVE DIFF @See below
[2017-10-02 05:35] LABS: HEMOGLOBIN A1C 9.5 % (0-5.9)
[2017-10-02 05:50] LABS: ANION GAP 16 (8-16); BLOOD UREA NITROGEN 6 mg/dl (7-20); CALCIUM 8.4 mg/dl (8.4-10.2); CARBON DIOXIDE 21 mmol/L (21-31); CHLORIDE 102 mmol/L (97-110); CREATININE 0.55 mg/dl (0.44-1.00); GLUCOSE 203 mg/dl (70-220); POTASSIUM 3.1 mmol/L (3.5-5.1); SODIUM 136 mmol/L (135-144)
[2017-10-02] MEDS: PANTOPRAZOLE 40 MG INJ IV (06:32)
[2017-10-02] MEDS: metroNIDAZOLE 500 MG/NS (PMX) 100 ML IVPB ×2 (06:32→14:08)
[2017-10-02] MEDS: SOD CHLORIDE 0.9% 1,000 ML IV ×2 (06:50→20:10)
[2017-10-02] MEDS: SOD CHLORIDE 0.9% 100 ML (08:28)
[2017-10-02] MEDS: IODIXANOL LOCM 100 ML BTL (08:28)
[2017-10-02] MEDS: CIPROFLOXACIN 400MG/D5W 200 ML IVPB ×2 (09:43→20:43)
[2017-10-02 11:43] LABS: ALANINE AMINOTRANSFERASE 118 IU/L (13-69); ALBUMIN 3.1 g/dl (3.3-4.9); ALBUMIN/GLOBULIN RATIO 0.93; ALKALINE PHOSPHATASE 614 IU/L (42-121); ANION GAP 16 (8-16); ASPARTATE AMINO TRANSFERASE 93 IU/L (15-46); BILIRUBIN,INDIRECT 1.2 mg/dl (0-1.1); BILIRUBIN,TOTAL 1.5 mg/dl (0.2-1.3); BLOOD UREA NITROGEN 4 mg/dl (7-20); CALCIUM 8.3 mg/dl (8.4-10.2); CARBON DIOXIDE 21 mmol/L (21-31); CHLORIDE 99 mmol/L (97-110); GLUCOSE 331 mg/dl (70-220); POTASSIUM 3.4 mmol/L (3.5-5.1); SODIUM 133 mmol/L (135-144); TOTAL PROTEIN 6.4 g/dl (6.1-8.1)
[2017-10-02] MEDS: metFORMIN 500 MG TAB PO (14:44)
[2017-10-02] MEDS: morphine 2 MG INJ IV (16:28)
[2017-10-02] MEDS: POTASSIUM CHLORIDE (SR) 10 MEQ TAB PO (18:52)
[2017-10-02] MEDS: INSULIN GLARGINE [LANtus] 3 ML PEN SC (20:49)
== END 2017-10-02 21:00 | disposition home or self-care (01) | DRG 445 ==
LOC: PP2 09-30 12:04 → E/R 11:47 → PP2 14:30
PROVIDERS: Internal Medicine Nephrology
PROC: 0F798DZ Dilation of Common Bile Duct with Intraluminal Device, Via Natural or Artificial Opening Endoscopic (ICD-10-PCS; principal; 2017-09-30 18:00)
PROC: 0FC98ZZ Extirpation of Matter from Common Bile Duct, Via Natural or Artificial Opening Endoscopic (ICD-10-PCS; 2017-09-30 18:00)
DX: K83.1 Obstruction of bile duct (principal); C25.7 Malignant neoplasm of other parts of pancreas; C78.00 Secondary malignant neoplasm of unspecified lung; E11.9 Type 2 diabetes mellitus without complications; I10 Essential (primary) hypertension; D64.9 Anemia, unspecified; Z79.84 Long term (current) use of oral hypoglycemic drugs; Z90.49 Acquired absence of other specified parts of digestive tract; Z98.51 Tubal ligation status; Z87.891 Personal history of nicotine dependence
CPT/HCPCS: 71045; 71260; 74178; 74181; 74330; 80048; 80053; 81001; 82962; 83036; 83690; 84484; 85025; 85610; 85730; 87081; 93005; 99285-25

== ENCOUNTER 2017-10-19 10:25 | Emergency (ER) | payer OTHER ==
[2017-10-19] MEDS: SOD CHLORIDE 0.9% 1,000 ML IV (11:54)
[2017-10-19] MEDS: ONDANSETRON (ODT) 4 MG TAB ODT (11:54)
[2017-10-19 12:11] LABS: ADD MAN DIFF? NO
[2017-10-19 12:24] LABS: ABNORMAL IP MESSAGE 1; BASOPHILS % 0.1 % (0.0-2.0); HEMATOCRIT 28.5 % (37.0-47.0); HEMOGLOBIN 9.4 g/dl (12.0-16.0); LYMPHOCYTES # 0.2 10^3/ul (0.8-2.9); LYMPHOCYTES % 1.6 % (15.0-51.0); MEAN CORPUSCULAR HEMOGLOBIN 29.3 pg (29.0-33.0); MEAN CORPUSCULAR VOLUME 88.8 fl (82.0-101.0); MEAN PLATELET VOLUME 10.9 fl (7.4-10.4); MONOCYTE # 0.4 10^3/ul (0.3-0.9); MONOCYTES % 3.1 % (0.0-11.0); NEUTROPHIL # 12.2 10^3/ul (1.6-7.5); NEUTROPHILS % 94.8 % (39.0-77.0); PLATELET COUNT 336 10^3/UL (140-415); RED BLOOD COUNT 3.21 10^6/ul (4.20-5.40); RED CELL DISTRIBUTION WIDTH 16.4 % (11.5-14.5)
[2017-10-19 12:24] LABS: WHITE BLOOD COUNT 12.9 10^3/ul (4.8-10.8)
[2017-10-19 12:26] LABS: POSITIVE DIFF @See below
[2017-10-19 12:31] LABS: ANION GAP 18 (8-16); BLOOD UREA NITROGEN 13 mg/dl (7-20); CALCIUM 8.9 mg/dl (8.4-10.2); CARBON DIOXIDE 23 mmol/L (21-31); CHLORIDE 107 mmol/L (97-110); CREATININE 0.62 mg/dl (0.44-1.00); GLUCOSE 121 mg/dl (70-220); POTASSIUM 3.6 mmol/L (3.5-5.1); SODIUM 144 mmol/L (135-144)
[2017-10-19 12:33] LABS: ADD UMIC YES; UR ASCORBIC ACID NEGATIVE (NEGATIVE); UR BACTERIA FEW /HPF (NONE SEEN); UR BILIRUBIN (Dip) 2+ mg/dL (NEGATIVE); UR BLOOD (Dip) NEGATIVE (NEGATIVE); UR CLARITY SLIGHTLY CLOUDY (CLEAR); UR COLOR AMBER (YELLOW); UR GLUCOSE (Dip) 1+ mg/dL (NEGATIVE); UR KETONES (Dip) NEGATIVE (NEGATIVE); UR LEUKOCYTE ESTERASE (Dip) NEGATIVE Leu/ul (NEGATIVE); UR MUCUS FEW /HPF (NONE SEEN); UR NITRITE (Dip) NEGATIVE (NEGATIVE); UR NONSQUAMOUS EPITHELIAL CELL 4 /HPF (NONE SEEN); UR RBC 2 /HPF (0-5); UR SPECIFIC GRAVITY (Dip) 1.032 (1.003-1.030); UR SQUAMOUS EPITHELIAL CELL FEW /HPF (FEW); UR TOTAL PROTEIN (Dip) 2+ mg/dl (NEGATIVE); UR UROBILINOGEN (Dip) 2+ mg/dL (NEGATIVE); UR WBC 22 /HPF (0-5)
[2017-10-19 12:45] LABS: TROPONIN-I < 0.012 ng/ml (0.000-0.120)
[2017-10-19 12:47] LABS: INR 1.04; PROTIME 13.7 Sec (11.9-14.9); PT RATIO 1.1
[2017-10-19 12:48] LABS: PARTIAL THROMBOPLASTIN TIME 23.8 Sec (25.0-35.0)
== END 2017-10-19 14:51 | disposition home or self-care (01) ==
LOC: FTE 10:25
DX: R55 Syncope and collapse (principal); D64.9 Anemia, unspecified; I10 Essential (primary) hypertension; E11.9 Type 2 diabetes mellitus without complications; F17.210 Nicotine dependence, cigarettes, uncomplicated; Z79.4 Long term (current) use of insulin; Z85.07 Personal history of malignant neoplasm of pancreas
CPT/HCPCS: 36415; 70450; 73140; 80048; 81001; 82962; 84484; 85025; 85610; 85730; 93005; 99285-25

== ENCOUNTER 2018-01-08 09:35 | Inpatient (IN) | payer OTHER ==
[2018-01-08] MEDS: HYDROmorphONE 1 MG/ML SYG IV (10:13)
[2018-01-08] MEDS: ONDANSETRON 4 MG INJ IV (10:13)
[2018-01-08] MEDS: SOD CHLORIDE 0.9% 1,000 ML IV ×2 (10:13→15:52)
[2018-01-08 10:21] LABS: ABNORMAL IP MESSAGE 1; HEMATOCRIT 25.7 % (37.0-47.0); HEMOGLOBIN 8.4 g/dl (12.0-16.0); IMMATURE GRANS #M 0.45 10^3/ul; IMMATURE GRANS % (M) 1.4 %; MEAN CORPUSCULAR HEMOGLOBIN 29.7 pg (29.0-33.0); MEAN CORPUSCULAR HGB CONC 32.7 g/dl (32.0-37.0); MEAN CORPUSCULAR VOLUME 90.8 fl (82.0-101.0); MEAN PLATELET VOLUME 10.6 fl (7.4-10.4); NUCLEATED RED BLOOD CELLS% 0.1 /100WBC (0.0-0.0); PLATELET COUNT 297 10^3/UL (140-415); RED BLOOD COUNT 2.83 10^6/ul (4.20-5.40); RED CELL DISTRIBUTION WIDTH 16.1 % (11.5-14.5)
[2018-01-08 10:21] LABS: WHITE BLOOD COUNT 32.6 10^3/ul (4.8-10.8)
[2018-01-08 10:24] LABS: POSITIVE DIFF @See below
[2018-01-08 10:25] LABS: ADD MAN DIFF? YES
[2018-01-08 10:40] LABS: ALANINE AMINOTRANSFERASE 168 IU/L (13-69); ALBUMIN 3.8 g/dl (3.3-4.9); ALBUMIN/GLOBULIN RATIO 1.05; ANION GAP 27 (8-16); ASPARTATE AMINO TRANSFERASE 290 IU/L (15-46); BILIRUBIN,INDIRECT 0.5 mg/dl (0-1.1); BILIRUBIN,TOTAL 2.6 mg/dl (0.2-1.3); BLOOD UREA NITROGEN 48 mg/dl (7-20); CALCIUM 8.8 mg/dl (8.4-10.2); CARBON DIOXIDE 36 mmol/L (21-31); CHLORIDE 77 mmol/L (97-110); CREATININE 3.23 mg/dl (0.44-1.00); GLUCOSE 212 mg/dl (70-220); POTASSIUM 3.8 mmol/L (3.5-5.1); SODIUM 136 mmol/L (135-144); TOTAL PROTEIN 7.4 g/dl (6.1-8.1)
[2018-01-08 10:43] LABS: LIPASE < 10 U/L (23-300)
[2018-01-08 10:49] LABS: ANISOCYTOSIS 1+ (0-0); BAND NEUTROPHILS #M 3.9 10^3/ul (0.0-0.6); BAND NEUTROPHILS % (M) 12 % (0-4); GIANT THROMBO% (M) 1 % (0-0); HYPOCHROMASIA 1+ (0-0); LYMPHOCYTES #M 0.9 10^3/ul (0.8-2.9); LYMPHOCYTES % (M) 3 % (15-51); MONOCYTE #M 0.3 10^3/ul (0.3-0.9); MONOCYTES % (M) 1 % (0-11); PLATELET ESTIMATE NORMAL; POLYCHROMASIA 3+ (0-0); RBC MORPHOLOGY COMMENT @See below; SEG NEUT #M 28.7 10^3/ul (1.6-7.5); SEGMENTED NEUTROPHILS (M) % 84 % (39-77); SMUDGE%M 3 % (0-0); WBC MORPHOLOGY COMMENT @See below
[2018-01-08 10:52] LABS: ALKALINE PHOSPHATASE 1867 IU/L (42-121)
[2018-01-08] MEDS: CEFEPIME 2GM/50 ML (PMX) 50 ML IVPB (12:56)
[2018-01-08] MEDS: SODIUM CHLORIDE 0.9% 1L BAG IV* (12:56)
[2018-01-08] MEDS: VANCOMYCIN 1 GM (PMX) 250 ML IVPB (13:23)
[2018-01-08] MEDS ORDERED: ACETAMINOPHEN 325 MG TAB PO ×2 (13:30→18:00)
[2018-01-08] MEDS ORDERED: ONDANSETRON 4 MG INJ IV (13:30)
[2018-01-08] MEDS: HYDROmorphONE 2 MG/ML SYG IV (15:50)
[2018-01-08] MEDS ORDERED: BISACODYL (EC) 5 MG TAB PO (18:00)
[2018-01-08] MEDS ORDERED: ACETAMINOPHEN 650 MG SUPP PR (18:00)
[2018-01-08] MEDS ORDERED: MAGNESIUM HYDROXIDE 30ML CUP PO (18:00)
[2018-01-08] MEDS ORDERED: DOCUSATE SODIUM 100 MG CAP PO (18:00)
[2018-01-08] MEDS ORDERED: NACL 0.9% 3 ML SYG IV (18:00)
[2018-01-08] MEDS: DEXTROSE 5%-0.45% NACL 1,000 ML IV ×2 (18:30→20:55)
[2018-01-08] MEDS: PIPER-TAZO 2.25 GM (PMX) 50 ML IVPB (18:30)
[2018-01-08] MEDS ORDERED: GLUCOSE GEL 15 GRAM TUBE PO ×2 (19:30)
[2018-01-08] MEDS ORDERED: GLUCAGON 1 MG INJ IM (19:30)
[2018-01-08] MEDS ORDERED: GLUCOSE GEL 15 GRAM TUBE BUCCAL (19:30)
[2018-01-08] MEDS ORDERED: DEXTROSE 50% 50 ML SYRINGE IV ×2 (19:30)
[2018-01-08] MEDS: SOD CHLORIDE 0.9% 500 ML IV (19:53)
[2018-01-08] MEDS: HYDROmorphONE 0.5 MG/0.5 ML SYG IV (20:55)
[2018-01-08] MEDS: INSULIN ASPART [NOVOLOG] 3 ML PEN SC (21:39)
[2018-01-09] MEDS: PIPER-TAZO 2.25 GM (PMX) 50 ML IVPB ×4 (00:07→18:19)
[2018-01-09] MEDS: ACCU-CHEK XX (02:08)
[2018-01-09] MEDS: HYDROmorphONE 0.5 MG/0.5 ML SYG IV ×3 (02:09→20:09)
[2018-01-09] MEDS: PANTOPRAZOLE 40 MG INJ IV (06:43)
[2018-01-09] MEDS: DEXTROSE 5%-0.45% NACL 1,000 ML IV (06:44)
[2018-01-09 06:50] LABS: HEMOGLOBIN A1C 8.2 % (0-5.9)
[2018-01-09] MEDS: ENOXAPARIN 40 MG/0.4 ML SYG SC (09:29)
[2018-01-09] MEDS: INSULIN ASPART [NOVOLOG] 3 ML PEN SC ×4 (09:29→20:19)
[2018-01-09] MEDS: ONDANSETRON 4 MG INJ IV (10:05)
[2018-01-09 15:55] LABS: ADD UMIC YES; UR ASCORBIC ACID NEGATIVE (NEGATIVE); UR BACTERIA FEW /HPF (NONE SEEN); UR BILIRUBIN (Dip) NEGATIVE (NEGATIVE); UR BLOOD (Dip) 2+ mg/dL (NEGATIVE); UR BUDDING YEAST FEW /HPF (NONE SEEN); UR CLARITY CLOUDY (CLEAR); UR COLOR AMBER (YELLOW); UR GLUCOSE (Dip) 3+ mg/dL (NEGATIVE); UR KETONES (Dip) NEGATIVE (NEGATIVE); UR LEUKOCYTE ESTERASE (Dip) NEGATIVE Leu/ul (NEGATIVE); UR NITRITE (Dip) NEGATIVE (NEGATIVE); UR RBC 2 /HPF (0-5); UR SPECIFIC GRAVITY (Dip) 1.016 (1.003-1.030); UR SQUAMOUS EPITHELIAL CELL FEW /HPF (FEW); UR TOTAL PROTEIN (Dip) 2+ mg/dl (NEGATIVE); UR UROBILINOGEN (Dip) NEGATIVE (NEGATIVE); UR WBC 12 /HPF (0-5)
[2018-01-09] MEDS ORDERED: HYDROmorphONE 0.5 MG/0.5 ML SYG IV (18:36)
[2018-01-10] MEDS: PIPER-TAZO 2.25 GM (PMX) 50 ML IVPB ×5 (00:10→23:43)
[2018-01-10] MEDS: HYDROmorphONE 0.5 MG/0.5 ML SYG IV ×4 (01:57→16:11)
[2018-01-10] MEDS: ACCU-CHEK XX (01:57)
[2018-01-10] MEDS: DEXTROSE 5%-0.45% NACL 1,000 ML IV ×2 (05:15→09:31)
[2018-01-10] MEDS: PANTOPRAZOLE 40 MG INJ IV (05:15)
[2018-01-10 06:36] LABS: ALANINE AMINOTRANSFERASE 61 IU/L (13-69); ALBUMIN 2.6 g/dl (3.3-4.9); ALBUMIN/GLOBULIN RATIO 0.83; ALKALINE PHOSPHATASE 737 IU/L (42-121); ANION GAP 15 (8-16); ASPARTATE AMINO TRANSFERASE 41 IU/L (15-46); BILIRUBIN,INDIRECT 0.2 mg/dl (0-1.1); BILIRUBIN,TOTAL 0.2 mg/dl (0.2-1.3); BLOOD UREA NITROGEN 50 mg/dl (7-20); CALCIUM 7.2 mg/dl (8.4-10.2); CARBON DIOXIDE 37 mmol/L (21-31); CHLORIDE 88 mmol/L (97-110); CREATININE 2.39 mg/dl (0.44-1.00); GLUCOSE 332 mg/dl (70-220); SODIUM 137 mmol/L (135-144); TOTAL PROTEIN 5.7 g/dl (6.1-8.1)
[2018-01-10 06:38] LABS: POTASSIUM 2.6 mmol/L (3.5-5.1)
[2018-01-10] MEDS ORDERED: POTASSIUM CHLORIDE 50 ML IVPB ×2 (07:00→07:30)
[2018-01-10 08:13] LABS: HEMATOCRIT 20.4 % (37.0-47.0)
[2018-01-10] MEDS: ENOXAPARIN 40 MG/0.4 ML SYG SC (08:20)
[2018-01-10 08:24] LABS: HEMOGLOBIN 6.6 g/dl (12.0-16.0)
[2018-01-10] MEDS: POTASSIUM CHLORIDE 100 ML IVPB ×4 (08:26→16:07)
[2018-01-10 09:04] LABS: INR 0.92; PROTIME 12.4 Sec (11.9-14.9)
[2018-01-10 09:05] LABS: PARTIAL THROMBOPLASTIN TIME 29.3 Sec (25.0-35.0)
[2018-01-10] MEDS: ACETAMINOPHEN 325 MG TAB PO (09:30)
[2018-01-10] MEDS: DIPHENHYDRAMINE 50 MG INJ IV (09:30)
[2018-01-10] MEDS: INSULIN ASPART [NOVOLOG] 3 ML PEN SC ×4 (09:41→22:25)
[2018-01-10] MEDS ORDERED: POTASSIUM CHLORIDE 20 MEQ in SOD CHLORIDE 0.45% 1,000 ML IV (12:30)
[2018-01-10] MEDS ORDERED: 1/2 NS + KCL 20 MEQ 1,000 ML IV (13:00)
[2018-01-10 13:18] LABS: Allen Test ACCEPTAB; Arterial Base Excess 13.8 mmol/L (-3.0-3); Arterial Blood Gas Oxygen Sat 98.5 mmHG (95.0-98.0); Arterial COHb 0.9 % (0.0-3.0); Arterial Fraction of Oxyhgb 97.3 % (93.0-99.0); Arterial HCO3 37.7 mmol/L (22.0-26.0); Arterial MetHb 0.3 % (0.0-1.5); Arterial pCO2 46.1 mmhg (35-45); MODE NASAL CANNULA; Site Right Radial
[2018-01-10] MEDS: D5W-0.45 NACL + KCL 20 MEQ 1,000 ML IV (13:35)
[2018-01-10] MEDS: ACETAZOLAMIDE 500 MG INJ IV (14:36)
[2018-01-10 18:24] LABS: IMMEDIATE SPIN CROSSMATCH 1 1
[2018-01-10] MEDS: INSULIN GLARGINE [LANTus] (100 UNITS/ML) SYG SC (22:17)
[2018-01-10 22:45] LABS: ADD MAN DIFF? NO
[2018-01-10 22:46] LABS: BASOPHILS % 0.1 % (0.0-2.0); HEMOGLOBIN 8.6 g/dl (12.0-16.0); IMMATURE GRANS #M 0.11 10^3/ul; IMMATURE GRANS % (M) 0.5 %; LYMPHOCYTES # 0.8 10^3/ul (0.8-2.9); LYMPHOCYTES % 4.1 % (15.0-51.0); MEAN CORPUSCULAR HGB CONC 31.9 g/dl (32.0-37.0); MEAN CORPUSCULAR VOLUME 90.9 fl (82.0-101.0); MEAN PLATELET VOLUME 11.1 fl (7.4-10.4); MONOCYTE # 0.8 10^3/ul (0.3-0.9); MONOCYTES % 3.7 % (0.0-11.0); NEUTROPHIL # 18.8 10^3/ul (1.6-7.5); NEUTROPHILS % 91.6 % (39.0-77.0); NUCLEATED RED BLOOD CELLS% 0.2 /100WBC (0.0-0.0); PLATELET COUNT 242 10^3/UL (140-415); RED BLOOD COUNT 2.97 10^6/ul (4.20-5.40); RED CELL DISTRIBUTION WIDTH 15.8 % (11.5-14.5)
[2018-01-10 22:46] LABS: WHITE BLOOD COUNT 20.5 10^3/ul (4.8-10.8)
[2018-01-10 23:04] LABS: ANION GAP 12 (8-16); BLOOD UREA NITROGEN 33 mg/dl (7-20); CALCIUM 8.1 mg/dl (8.4-10.2); CARBON DIOXIDE 33 mmol/L (21-31); CHLORIDE 97 mmol/L (97-110); CREATININE 1.58 mg/dl (0.44-1.00); GLUCOSE 271 mg/dl (70-220); POTASSIUM 3.4 mmol/L (3.5-5.1); SODIUM 139 mmol/L (135-144)
[2018-01-11] MEDS: HYDROmorphONE 0.5 MG/0.5 ML SYG IV ×3 (01:09→13:26)
[2018-01-11] MEDS: INSULIN ASPART [NOVOLOG] 3 ML PEN SC ×6 (01:24→20:25)
[2018-01-11] MEDS: ACCU-CHEK XX (02:00)
[2018-01-11] MEDS ORDERED: ACCU-CHEK XX (02:00)
[2018-01-11] MEDS: D5W-0.45 NACL + KCL 20 MEQ 1,000 ML IV ×2 (03:27→16:36)
[2018-01-11] MEDS: PANTOPRAZOLE 40 MG INJ IV (06:08)
[2018-01-11] MEDS: PIPER-TAZO 2.25 GM (PMX) 50 ML IVPB ×3 (06:08→17:16)
[2018-01-11] MEDS ORDERED: LIDOCAINE 2% (SDV) 5 ML INJ (07:00)
[2018-01-11] MEDS ORDERED: PROPOFOL 200 MG INJ (07:00)
[2018-01-11] MEDS ORDERED: SUCCINYLCHOLINE CHLORIDE 100 MG/5 ML SYG IV (07:00)
[2018-01-11] MEDS: INDOMETHACIN 50 MG SUPP PR (09:00)
[2018-01-11] MEDS ORDERED: IOHEXOL 300MG/ML 30 ML BTL (10:51)
[2018-01-11] MEDS ORDERED: METOCLOPRAMIDE 10 MG INJ (12:35)
[2018-01-11] MEDS ORDERED: HYDROmorphONE 1 MG/5 ML IV SYRINGE IV ×2 (13:00)
[2018-01-11] MEDS: POTASSIUM CHLORIDE 100 ML IVPB ×2 (14:07→17:53)
[2018-01-11] MEDS: METOCLOPRAMIDE 10 MG INJ IV ×2 (14:07→17:16)
[2018-01-11] MEDS ORDERED: POTASSIUM CHLORIDE 20 MEQ in DEXTROSE 5%-0.9% NACL 1,000 ML IV (19:30)
[2018-01-11] MEDS: INSULIN GLARGINE [LANTus] (100 UNITS/ML) SYG SC (20:25)
[2018-01-12] MEDS: PIPER-TAZO 2.25 GM (PMX) 50 ML IVPB ×4 (00:44→17:48)
[2018-01-12] MEDS: METOCLOPRAMIDE 10 MG INJ IV ×4 (00:54→18:16)
[2018-01-12] MEDS: D5-NS + KCL 20 MEQ 1,000 ML IV ×4 (00:54→20:31)
[2018-01-12] MEDS: INSULIN ASPART [NOVOLOG] 3 ML PEN SC ×6 (01:20→21:22)
[2018-01-12] MEDS: ACCU-CHEK XX (02:00)
[2018-01-12] MEDS: PANTOPRAZOLE 40 MG INJ IV (05:19)
[2018-01-12 06:14] LABS: ADD MAN DIFF? NO
[2018-01-12 06:22] LABS: WHITE BLOOD COUNT 16.5 10^3/ul (4.8-10.8)
[2018-01-12 06:22] LABS: BASOPHILS % 0.1 % (0.0-2.0); EOSINOPHILS % 0.1 % (0.0-7.0); HEMATOCRIT 27.9 % (37.0-47.0); HEMOGLOBIN 8.7 g/dl (12.0-16.0); IMMATURE GRANS #M 0.14 10^3/ul; IMMATURE GRANS % (M) 0.9 %; LYMPHOCYTES # 1.2 10^3/ul (0.8-2.9); LYMPHOCYTES % 7.4 % (15.0-51.0); MEAN CORPUSCULAR HEMOGLOBIN 28.6 pg (29.0-33.0); MEAN CORPUSCULAR HGB CONC 31.2 g/dl (32.0-37.0); MEAN CORPUSCULAR VOLUME 91.8 fl (82.0-101.0); MEAN PLATELET VOLUME 10.9 fl (7.4-10.4); MONOCYTE # 1.1 10^3/ul (0.3-0.9); MONOCYTES % 6.6 % (0.0-11.0); NEUTROPHILS % 84.9 % (39.0-77.0); PLATELET COUNT 264 10^3/UL (140-415); RED BLOOD COUNT 3.04 10^6/ul (4.20-5.40); RED CELL DISTRIBUTION WIDTH 15.9 % (11.5-14.5)
[2018-01-12 06:50] LABS: ALANINE AMINOTRANSFERASE 34 IU/L (13-69); ALBUMIN 2.5 g/dl (3.3-4.9); ALBUMIN/GLOBULIN RATIO 0.86; ALKALINE PHOSPHATASE 476 IU/L (42-121); ANION GAP 9 (8-16); ASPARTATE AMINO TRANSFERASE 23 IU/L (15-46); BILIRUBIN,INDIRECT 0.3 mg/dl (0-1.1); BILIRUBIN,TOTAL 0.3 mg/dl (0.2-1.3); BLOOD UREA NITROGEN 25 mg/dl (7-20); CALCIUM 8.1 mg/dl (8.4-10.2); CARBON DIOXIDE 35 mmol/L (21-31); CHLORIDE 104 mmol/L (97-110); CREATININE 0.94 mg/dl (0.44-1.00); GLUCOSE 163 mg/dl (70-220); SODIUM 145 mmol/L (135-144); TOTAL PROTEIN 5.4 g/dl (6.1-8.1)
[2018-01-12 06:54] LABS: MAGNESIUM 1.7 mg/dl (1.7-2.5)
[2018-01-12 06:54] LABS: PHOSPHORUS 1.1 mg/dl (2.5-4.9)
[2018-01-12 07:03] LABS: POTASSIUM 2.7 mmol/L (3.5-5.1)
[2018-01-12] MEDS: POTASSIUM CHLORIDE 100 ML IVPB ×3 (08:46→13:55)
[2018-01-12] MEDS: POTASSIUM PHOSPHATE 40 MEQ in SOD CHLORIDE 0.9% 250 ML IVPB (16:16)
[2018-01-12 17:52] LABS: POTASSIUM 3.6 mmol/L (3.5-5.1)
[2018-01-12] MEDS: HYDROmorphONE 0.5 MG/0.5 ML SYG IV (18:23)
[2018-01-12] MEDS: INSULIN GLARGINE [LANTus] (100 UNITS/ML) SYG SC (21:22)
[2018-01-13] MEDS: METOCLOPRAMIDE 10 MG INJ IV ×5 (00:49→23:48)
[2018-01-13] MEDS: PIPER-TAZO 2.25 GM (PMX) 50 ML IVPB ×5 (00:49→23:50)
[2018-01-13] MEDS: INSULIN ASPART [NOVOLOG] 3 ML PEN SC ×6 (01:35→20:34)
[2018-01-13] MEDS: ACCU-CHEK XX (01:35)
[2018-01-13] MEDS: PANTOPRAZOLE 40 MG INJ IV (05:31)
[2018-01-13 06:09] LABS: ADD MAN DIFF? NO
[2018-01-13 06:15] LABS: BASOPHILS % 0.1 % (0.0-2.0); EOSINOPHILS % 0.2 % (0.0-7.0); HEMATOCRIT 27.9 % (37.0-47.0); HEMOGLOBIN 8.6 g/dl (12.0-16.0); LYMPHOCYTES # 1.1 10^3/ul (0.8-2.9); LYMPHOCYTES % 7.3 % (15.0-51.0); MEAN CORPUSCULAR HEMOGLOBIN 28.6 pg (29.0-33.0); MEAN CORPUSCULAR HGB CONC 30.8 g/dl (32.0-37.0); MEAN CORPUSCULAR VOLUME 92.7 fl (82.0-101.0); MEAN PLATELET VOLUME 11.1 fl (7.4-10.4); MONOCYTE # 0.9 10^3/ul (0.3-0.9); MONOCYTES % 6.2 % (0.0-11.0); NEUTROPHILS % 85.3 % (39.0-77.0); PLATELET COUNT 249 10^3/UL (140-415); RED BLOOD COUNT 3.01 10^6/ul (4.20-5.40); RED CELL DISTRIBUTION WIDTH 15.9 % (11.5-14.5)
[2018-01-13 06:15] LABS: WHITE BLOOD COUNT 15.2 10^3/ul (4.8-10.8)
[2018-01-13] MEDS: D5-NS + KCL 20 MEQ 1,000 ML IV (06:30)
[2018-01-13 06:41] LABS: ALANINE AMINOTRANSFERASE 31 IU/L (13-69); ALBUMIN 2.4 g/dl (3.3-4.9); ALBUMIN/GLOBULIN RATIO 0.75; ALKALINE PHOSPHATASE 417 IU/L (42-121); ANION GAP 8 (8-16); ASPARTATE AMINO TRANSFERASE 22 IU/L (15-46); BILIRUBIN,INDIRECT 0.4 mg/dl (0-1.1); BILIRUBIN,TOTAL 0.4 mg/dl (0.2-1.3); BLOOD UREA NITROGEN 17 mg/dl (7-20); CALCIUM 7.8 mg/dl (8.4-10.2); CARBON DIOXIDE 30 mmol/L (21-31); CHLORIDE 114 mmol/L (97-110); CREATININE 0.75 mg/dl (0.44-1.00); GLUCOSE 195 mg/dl (70-220); SODIUM 149 mmol/L (135-144); TOTAL PROTEIN 5.6 g/dl (6.1-8.1)
[2018-01-13 06:44] LABS: MAGNESIUM 1.3 mg/dl (1.7-2.5)
[2018-01-13] MEDS: MAGNESIUM SULFATE 4 GM/100 ML 100 ML IVPB (10:02)
[2018-01-13] MEDS: POTASSIUM PHOSPHATE 40 MEQ in SOD CHLORIDE 0.9% 250 ML IVPB (11:01)
[2018-01-13] MEDS ORDERED: POTASSIUM CHLORIDE 20 MEQ in DEXTROSE 5%-0.45% NACL 1,000 ML IV (14:30)
[2018-01-13] MEDS: POTASSIUM CHLORIDE 20 MEQ in DEXTROSE 5%-0.45% NACL 1,000 ML IV (15:22)
[2018-01-13] MEDS: HYDROmorphONE 0.5 MG/0.5 ML SYG IV (20:06)
[2018-01-13] MEDS: ERYTHROMYCIN BASE (EC) 250 MG TAB PO (20:35)
[2018-01-13] MEDS: INSULIN GLARGINE [LANTus] (100 UNITS/ML) SYG SC (21:11)
[2018-01-14] MEDS: HYDROmorphONE 0.5 MG/0.5 ML SYG IV ×4 (00:59→17:51)
[2018-01-14] MEDS: INSULIN ASPART [NOVOLOG] 3 ML PEN SC ×4 (01:06→11:55)
[2018-01-14] MEDS: POTASSIUM CHLORIDE 20 MEQ in DEXTROSE 5%-0.45% NACL 1,000 ML IV (01:07)
[2018-01-14] MEDS: ACCU-CHEK XX (01:12)
[2018-01-14] MEDS: D5W-0.45 NACL + KCL 20 MEQ 1,000 ML IV ×4 (03:22→22:46)
[2018-01-14] MEDS: PIPER-TAZO 2.25 GM (PMX) 50 ML IVPB ×3 (05:23→17:11)
[2018-01-14] MEDS: METOCLOPRAMIDE 10 MG INJ IV ×3 (05:24→17:11)
[2018-01-14] MEDS: PANTOPRAZOLE 40 MG INJ IV (05:24)
[2018-01-14 05:52] LABS: ADD MAN DIFF? NO
[2018-01-14 05:53] LABS: BASOPHILS % 0.1 % (0.0-2.0); EOSINOPHILS # 0.1 10^3/ul (0.0-0.5); EOSINOPHILS % 0.5 % (0.0-7.0); HEMOGLOBIN 8.8 g/dl (12.0-16.0); LYMPHOCYTES # 1.1 10^3/ul (0.8-2.9); LYMPHOCYTES % 5.9 % (15.0-51.0); MEAN CORPUSCULAR HEMOGLOBIN 27.8 pg (29.0-33.0); MEAN CORPUSCULAR HGB CONC 30.3 g/dl (32.0-37.0); MEAN CORPUSCULAR VOLUME 91.8 fl (82.0-101.0); MEAN PLATELET VOLUME 11.1 fl (7.4-10.4); MONOCYTE # 0.5 10^3/ul (0.3-0.9); MONOCYTES % 2.6 % (0.0-11.0); NEUTROPHIL # 16.2 10^3/ul (1.6-7.5); NEUTROPHILS % 90.1 % (39.0-77.0); PLATELET COUNT 290 10^3/UL (140-415); RED BLOOD COUNT 3.16 10^6/ul (4.20-5.40)
[2018-01-14 06:29] LABS: ALANINE AMINOTRANSFERASE 28 IU/L (13-69); ALBUMIN 2.6 g/dl (3.3-4.9); ALBUMIN/GLOBULIN RATIO 0.81; ALKALINE PHOSPHATASE 501 IU/L (42-121); ANION GAP 10 (8-16); ASPARTATE AMINO TRANSFERASE 35 IU/L (15-46); BILIRUBIN,INDIRECT 0.4 mg/dl (0-1.1); BILIRUBIN,TOTAL 0.4 mg/dl (0.2-1.3); BLOOD UREA NITROGEN 12 mg/dl (7-20); CALCIUM 7.7 mg/dl (8.4-10.2); CARBON DIOXIDE 28 mmol/L (21-31); CHLORIDE 112 mmol/L (97-110); CREATININE 0.63 mg/dl (0.44-1.00); GLUCOSE 141 mg/dl (70-220); SODIUM 147 mmol/L (135-144); TOTAL PROTEIN 5.8 g/dl (6.1-8.1)
[2018-01-14 06:30] LABS: PHOSPHORUS 1.8 mg/dl (2.5-4.9)
[2018-01-14 06:30] LABS: MAGNESIUM 1.8 mg/dl (1.7-2.5)
[2018-01-14] MEDS: ERYTHROMYCIN BASE (EC) 250 MG TAB PO ×3 (07:30→22:43)
[2018-01-14] MEDS: POTASSIUM CHLORIDE 50 ML IVPB ×3 (08:10→09:36)
[2018-01-14] MEDS: Insulin NOVOLOG SS MILD Algorithm (SS with meals and bedtime) SC ×2 (17:18→21:31)
[2018-01-14] MEDS ORDERED: INSULIN ASPART [NOVOLOG] 3 ML PEN SC (18:00)
[2018-01-14] MEDS: INSULIN GLARGINE [LANTus] (100 UNITS/ML) SYG SC (21:31)
[2018-01-15] MEDS: METOCLOPRAMIDE 10 MG INJ IV ×4 (00:27→18:04)
[2018-01-15] MEDS: PIPER-TAZO 2.25 GM (PMX) 50 ML IVPB ×4 (00:27→18:04)
[2018-01-15] MEDS: HYDROmorphONE 0.5 MG/0.5 ML SYG IV ×5 (01:51→21:20)
[2018-01-15] MEDS: ACCUCHECK AT 2AM (Patients on SS coverage) XX (01:55)
[2018-01-15 06:03] LABS: ABNORMAL IP MESSAGE 1; HEMATOCRIT 30.4 % (37.0-47.0); HEMOGLOBIN 9.3 g/dl (12.0-16.0); MEAN CORPUSCULAR HEMOGLOBIN 28.5 pg (29.0-33.0); MEAN CORPUSCULAR HGB CONC 30.6 g/dl (32.0-37.0); MEAN CORPUSCULAR VOLUME 93.3 fl (82.0-101.0); MEAN PLATELET VOLUME 10.6 fl (7.4-10.4); PLATELET COUNT 385 10^3/UL (140-415); RED BLOOD COUNT 3.26 10^6/ul (4.20-5.40)
[2018-01-15 06:03] LABS: WHITE BLOOD COUNT 47.2 10^3/ul (4.8-10.8)
[2018-01-15] MEDS: PANTOPRAZOLE 40 MG INJ IV (06:19)
[2018-01-15 06:27] LABS: ANION GAP 10 (8-16); BLOOD UREA NITROGEN 13 mg/dl (7-20); CALCIUM 7.7 mg/dl (8.4-10.2); CARBON DIOXIDE 27 mmol/L (21-31); CHLORIDE 108 mmol/L (97-110); CREATININE 0.71 mg/dl (0.44-1.00); GLUCOSE 200 mg/dl (70-220); SODIUM 141 mmol/L (135-144)
[2018-01-15 06:33] LABS: POSITIVE DIFF @See below
[2018-01-15 06:34] LABS: ADD MAN DIFF? YES
[2018-01-15] MEDS: D5W-0.45 NACL + KCL 20 MEQ 1,000 ML IV ×2 (06:42→19:55)
[2018-01-15] MEDS: Insulin NOVOLOG SS MILD Algorithm (SS with meals and bedtime) SC ×4 (06:46→21:41)
[2018-01-15] MEDS: ERYTHROMYCIN BASE (EC) 250 MG TAB PO ×2 (08:30→21:24)
[2018-01-15 10:09] LABS: ABNORMAL IP MESSAGE 1; HEMATOCRIT 28.9 % (37.0-47.0); HEMOGLOBIN 8.9 g/dl (12.0-16.0); MEAN CORPUSCULAR HEMOGLOBIN 28.4 pg (29.0-33.0); MEAN CORPUSCULAR HGB CONC 30.8 g/dl (32.0-37.0); MEAN CORPUSCULAR VOLUME 92.3 fl (82.0-101.0); PLATELET COUNT 395 10^3/UL (140-415); RED BLOOD COUNT 3.13 10^6/ul (4.20-5.40)
[2018-01-15 10:09] LABS: WHITE BLOOD COUNT 49.9 10^3/ul (4.8-10.8)
[2018-01-15 10:18] LABS: POSITIVE DIFF @See below
[2018-01-15 10:20] LABS: ADD MAN DIFF? YES
[2018-01-15 10:57] LABS: ANISOCYTOSIS 1+ (0-0); BAND NEUTROPHILS #M 3.9 10^3/ul (0.0-0.6); BAND NEUTROPHILS % (M) 8 % (0-4); LYMPHOCYTES #M 0.4 10^3/ul (0.8-2.9); LYMPHOCYTES % (M) 1 % (15-51); PLATELET ESTIMATE NORMAL; POIKILOCYTOSIS 2+ (0-0); POLYCHROMASIA 3+ (0-0); SEG NEUT #M 47.4 10^3/ul (1.6-7.5); SEGMENTED NEUTROPHILS (M) % 91 % (39-77); SMUDGE%M 2 % (0-0)
[2018-01-15] MEDS: INSULIN GLARGINE [LANTus] (100 UNITS/ML) SYG SC (21:40)
[2018-01-16] MEDS: METOCLOPRAMIDE 10 MG INJ IV ×4 (01:12→18:00)
[2018-01-16] MEDS: PIPER-TAZO 2.25 GM (PMX) 50 ML IVPB ×3 (01:12→13:38)
[2018-01-16] MEDS: HYDROmorphONE 0.5 MG/0.5 ML SYG IV ×6 (01:51→20:31)
[2018-01-16] MEDS: ACCUCHECK AT 2AM (Patients on SS coverage) XX (01:56)
[2018-01-16] MEDS: PANTOPRAZOLE 40 MG INJ IV (05:33)
[2018-01-16] MEDS: Insulin NOVOLOG SS MILD Algorithm (SS with meals and bedtime) SC ×4 (06:21→23:08)
[2018-01-16] MEDS: ERYTHROMYCIN BASE (EC) 250 MG TAB PO ×2 (08:53→20:46)
[2018-01-16] MEDS ORDERED: LEVALBUTEROL (NEB) 1.25 MG/0.5 ML AMP (15:42)
[2018-01-16] MEDS: LEVALBUTEROL (NEB) 1.25 MG/0.5 ML AMP HHN (15:45)
[2018-01-16] MEDS: FLUCONAZOLE 100 MG/50 ML (PMX) 50 ML IVPB ×2 (17:00→21:25)
[2018-01-16] MEDS: SOD CHLORIDE 0.9% 500 ML IV (17:30)
[2018-01-16 17:47] LABS: Arterial Base Excess -8.4 mmol/L (-3.0-3); Arterial Blood Gas Oxygen Sat 90.2 mmHG (95.0-98.0); Arterial COHb 0.3 % (0.0-3.0); Arterial Fraction of Oxyhgb 89.7 % (93.0-99.0); Arterial HCO3 15.1 mmol/L (22.0-26.0); Arterial MetHb 0.3 % (0.0-1.5); Arterial Total Hemglobin 10.7 g/dl (12.0-18.0); Arterial pCO2 25.4 mmhg (35-45); MODE MASK - NRB; Site LB
[2018-01-16] MEDS: metroNIDAZOLE 500 MG/NS (PMX) 100 ML IVPB (18:00)
[2018-01-16] MEDS ORDERED: LORAZEPAM 0.5 MG TAB PO (18:30)
[2018-01-16 19:42] LABS: INR 1.56; PT RATIO 1.5
[2018-01-16 19:43] LABS: LACTIC ACID 3.7 mmol/L (0.5-2.0)
[2018-01-16 19:43] LABS: PARTIAL THROMBOPLASTIN TIME 40.1 Sec (25.0-35.0)
[2018-01-16] MEDS: ENOXAPARIN 40 MG/0.4 ML SYG SC (21:12)
[2018-01-16] MEDS: D5W-0.45 NACL + KCL 20 MEQ 1,000 ML IV (21:26)
[2018-01-16] MEDS: CIPROFLOXACIN 200 MG/D5W IVPB 100 ML IVPB (22:49)
[2018-01-16] MEDS: INSULIN GLARGINE [LANTus] (100 UNITS/ML) SYG SC (23:07)
[2018-01-17] MEDS: METOCLOPRAMIDE 10 MG INJ IV ×5 (01:02→23:06)
[2018-01-17] MEDS: metroNIDAZOLE 500 MG/NS (PMX) 100 ML IVPB ×5 (01:03→23:06)
[2018-01-17] MEDS: ACCUCHECK AT 2AM (Patients on SS coverage) XX (02:26)
[2018-01-17] MEDS: HYDROmorphONE 0.5 MG/0.5 ML SYG IV ×6 (03:14→23:06)
[2018-01-17] MEDS: PANTOPRAZOLE 40 MG INJ IV (05:52)
[2018-01-17 06:17] LABS: ABNORMAL IP MESSAGE 1; HEMATOCRIT 29.6 % (37.0-47.0); HEMOGLOBIN 9.2 g/dl (12.0-16.0); MEAN CORPUSCULAR HEMOGLOBIN 27.8 pg (29.0-33.0); MEAN CORPUSCULAR HGB CONC 31.1 g/dl (32.0-37.0); MEAN CORPUSCULAR VOLUME 89.4 fl (82.0-101.0); MEAN PLATELET VOLUME 11.5 fl (7.4-10.4); NUCLEATED RED BLOOD CELLS% 0.1 /100WBC (0.0-0.0); PLATELET COUNT 420 10^3/UL (140-415); RED BLOOD COUNT 3.31 10^6/ul (4.20-5.40); RED CELL DISTRIBUTION WIDTH 16.4 % (11.5-14.5)
[2018-01-17 06:17] LABS: WHITE BLOOD COUNT 25.8 10^3/ul (4.8-10.8)
[2018-01-17 06:19] LABS: ADD MAN DIFF? YES; POSITIVE DIFF @See below
[2018-01-17 06:44] LABS: ALANINE AMINOTRANSFERASE 74 IU/L (13-69); ALBUMIN 2.1 g/dl (3.3-4.9); ALKALINE PHOSPHATASE 238 IU/L (42-121); ANION GAP 14 (8-16); ASPARTATE AMINO TRANSFERASE 135 IU/L (15-46); BILIRUBIN,INDIRECT 0.2 mg/dl (0-1.1); BILIRUBIN,TOTAL 0.3 mg/dl (0.2-1.3); BLOOD UREA NITROGEN 35 mg/dl (7-20); CALCIUM 7.8 mg/dl (8.4-10.2); CARBON DIOXIDE 18 mmol/L (21-31); CHLORIDE 108 mmol/L (97-110); CREATININE 2.33 mg/dl (0.44-1.00); GLUCOSE 304 mg/dl (70-220); POTASSIUM 5.4 mmol/L (3.5-5.1); SODIUM 135 mmol/L (135-144); TOTAL PROTEIN 5.1 g/dl (6.1-8.1)
[2018-01-17] MEDS: ERYTHROMYCIN BASE (EC) 250 MG TAB PO ×2 (08:20→20:37)
[2018-01-17] MEDS: CIPROFLOXACIN 200 MG/D5W IVPB 100 ML IVPB ×2 (08:21→20:34)
[2018-01-17] MEDS: Insulin NOVOLOG SS MILD Algorithm (SS with meals and bedtime) SC ×4 (08:24→20:49)
[2018-01-17] MEDS: ENOXAPARIN 40 MG/0.4 ML SYG SC ×2 (08:25→20:48)
[2018-01-17 08:41] LABS: ANISOCYTOSIS 1+ (0-0); BAND NEUTROPHILS #M 7.7 10^3/ul (0.0-0.6); BAND NEUTROPHILS % (M) 30 % (0-4); BURR CELLS 2+ (0-0); ERYTHROBLAST% (NRBC) (M) 1 % (0-0); GIANT THROMBO% (M) 4 % (0-0); LYMPHOCYTES #M 1.2 10^3/ul (0.8-2.9); LYMPHOCYTES % (M) 5 % (15-51); MONOCYTES % (M) 4 % (0-11); PLATELET ESTIMATE NORMAL; POIKILOCYTOSIS 3+ (0-0); POLYCHROMASIA 2+ (0-0); SEG NEUT #M 17.7 10^3/ul (1.6-7.5); SEGMENTED NEUTROPHILS (M) % 61 % (39-77); SMUDGE%M 1 % (0-0); TARGET CELLS 1+ (0-0)
[2018-01-17] MEDS: NA POLYST SULFON 15 GM/60 ML BTL PO (15:23)
[2018-01-17] MEDS: DEXTROSE 5%-0.45% NACL 1,000 ML IV (15:24)
[2018-01-17] MEDS: FLUCONAZOLE 100 MG/50 ML (PMX) 50 ML IVPB (17:18)
[2018-01-17 19:41] LABS: POTASSIUM 5.1 mmol/L (3.5-5.1)
[2018-01-17] MEDS: INSULIN GLARGINE [LANTus] (100 UNITS/ML) SYG SC (20:49)
[2018-01-18] MEDS: ACCUCHECK AT 2AM (Patients on SS coverage) XX (02:50)
[2018-01-18 05:56] LABS: WHITE BLOOD COUNT 15.9 10^3/ul (4.8-10.8)
[2018-01-18 05:56] LABS: ABNORMAL IP MESSAGE 1; HEMATOCRIT 28.2 % (37.0-47.0); HEMOGLOBIN 8.8 g/dl (12.0-16.0); MEAN CORPUSCULAR HEMOGLOBIN 27.5 pg (29.0-33.0); MEAN CORPUSCULAR HGB CONC 31.2 g/dl (32.0-37.0); MEAN CORPUSCULAR VOLUME 88.1 fl (82.0-101.0); MEAN PLATELET VOLUME 11.8 fl (7.4-10.4); NUCLEATED RED BLOOD CELLS% 0.3 /100WBC (0.0-0.0); PLATELET COUNT 411 10^3/UL (140-415); RED CELL DISTRIBUTION WIDTH 16.6 % (11.5-14.5)
[2018-01-18 06:04] LABS: ADD MAN DIFF? YES; POSITIVE DIFF @See below
[2018-01-18] MEDS: METOCLOPRAMIDE 10 MG INJ IV ×4 (06:24→23:23)
[2018-01-18] MEDS: metroNIDAZOLE 500 MG/NS (PMX) 100 ML IVPB ×4 (06:24→23:24)
[2018-01-18] MEDS: PANTOPRAZOLE 40 MG INJ IV (06:24)
[2018-01-18 06:47] LABS: ANION GAP 19 (8-16); BLOOD UREA NITROGEN 45 mg/dl (7-20); CALCIUM 7.9 mg/dl (8.4-10.2); CARBON DIOXIDE 14 mmol/L (21-31); CHLORIDE 108 mmol/L (97-110); GLUCOSE 276 mg/dl (70-220); POTASSIUM 4.9 mmol/L (3.5-5.1); SODIUM 136 mmol/L (135-144)
[2018-01-18 06:57] LABS: CREATININE 3.05 mg/dl (0.44-1.00)
[2018-01-18] MEDS: Insulin NOVOLOG SS MILD Algorithm (SS with meals and bedtime) SC ×4 (07:56→21:43)
[2018-01-18] MEDS: HYDROmorphONE 0.5 MG/0.5 ML SYG IV ×4 (08:58→20:49)
[2018-01-18] MEDS: ERYTHROMYCIN BASE (EC) 250 MG TAB PO ×2 (08:59→20:38)
[2018-01-18] MEDS: CIPROFLOXACIN 200 MG/D5W IVPB 100 ML IVPB ×2 (09:00→20:44)
[2018-01-18] MEDS: ENOXAPARIN 40 MG/0.4 ML SYG SC (09:07)
[2018-01-18 10:21] LABS: ANISOCYTOSIS 2+ (0-0); BAND NEUTROPHILS #M 8.5 10^3/ul (0.0-0.6); BAND NEUTROPHILS % (M) 54 % (0-4); GIANT THROMBO% (M) 1 % (0-0); LYMPHOCYTES #M 0.6 10^3/ul (0.8-2.9); LYMPHOCYTES % (M) 4 % (15-51); METAMYELOCYTES #M 0.1 10^3/ul (0.0-0.0); METAMYELOCYTES %M 1 % (0-0); MONOCYTE #M 1.2 10^3/ul (0.3-0.9); MONOCYTES % (M) 8 % (0-11); MYELOCYTES #M 0.3 10^3/ul (0.0-0.0); MYELOCYTES % (M) 2 % (0-0); PLATELET ESTIMATE NORMAL; POIKILOCYTOSIS 3+ (0-0); POLYCHROMASIA 3+ (0-0); REACTIVE LYMPHOCYTES #M 0.3 10^3/ul (0.0-0.0); REACTIVE LYMPHOCYTES% (M) 2 % (0-0); SEG NEUT #M 6.1 10^3/ul (1.6-7.5); SEGMENTED NEUTROPHILS (M) % 30 % (39-77); SMUDGE%M 11 % (0-0)
[2018-01-18] MEDS: DEXTROSE 5%-0.45% NACL 1,000 ML IV (11:00)
[2018-01-18 16:45] LABS: AADO2 Arterial 235.4 mmHg (7.0-24.0); Allen Test ACCEPTAB; Arterial Base Excess -7.4 mmol/L (-3.0-3); Arterial Blood Gas Oxygen Sat 96.5 mmHG (95.0-98.0); Arterial COHb 0.6 % (0.0-3.0); Arterial Fraction of Oxyhgb 95.6 % (93.0-99.0); Arterial HCO3 16.3 mmol/L (22.0-26.0); Arterial MetHb 0.3 % (0.0-1.5); Arterial Total Hemglobin 8.9 g/dl (12.0-18.0); Blood Gas IEPAP 15/5; MODE MASK - BIPAP; Site Right Radial
[2018-01-18] MEDS: FLUCONAZOLE 100 MG/50 ML (PMX) 50 ML IVPB (16:53)
[2018-01-18] MEDS: SODIUM BICARBONATE (IV ADD) 50 MEQ in DEXTROSE 5% 1,000 ML IV (20:32)
[2018-01-18] MEDS: MEGESTROL (40 MG/ML) 10ML CUP PO (20:38)
[2018-01-18] MEDS: INSULIN GLARGINE [LANTus] (100 UNITS/ML) SYG SC (21:43)
[2018-01-19] MEDS: ACCUCHECK AT 2AM (Patients on SS coverage) XX (01:58)
[2018-01-19] MEDS: HYDROmorphONE 0.5 MG/0.5 ML SYG IV ×3 (05:06→14:22)
[2018-01-19] MEDS: metroNIDAZOLE 500 MG/NS (PMX) 100 ML IVPB ×2 (05:07→12:11)
[2018-01-19] MEDS: METOCLOPRAMIDE 10 MG INJ IV ×2 (05:07→12:11)
[2018-01-19] MEDS: PANTOPRAZOLE 40 MG INJ IV (05:07)
[2018-01-19 06:21] LABS: WHITE BLOOD COUNT 18.8 10^3/ul (4.8-10.8)
[2018-01-19 06:21] LABS: ABNORMAL IP MESSAGE 1; HEMATOCRIT 23.9 % (37.0-47.0); HEMOGLOBIN 7.6 g/dl (12.0-16.0); MEAN CORPUSCULAR HEMOGLOBIN 27.8 pg (29.0-33.0); MEAN CORPUSCULAR HGB CONC 31.8 g/dl (32.0-37.0); MEAN CORPUSCULAR VOLUME 87.5 fl (82.0-101.0); MEAN PLATELET VOLUME 11.5 fl (7.4-10.4); NUCLEATED RED BLOOD CELLS% 0.2 /100WBC (0.0-0.0); PLATELET COUNT 325 10^3/UL (140-415); RED BLOOD COUNT 2.73 10^6/ul (4.20-5.40)
[2018-01-19 06:34] LABS: ADD MAN DIFF? YES; POSITIVE DIFF @See below
[2018-01-19 06:42] LABS: ANION GAP 17 (8-16); BLOOD UREA NITROGEN 53 mg/dl (7-20); CALCIUM 7.5 mg/dl (8.4-10.2); CARBON DIOXIDE 15 mmol/L (21-31); CHLORIDE 107 mmol/L (97-110); GLUCOSE 243 mg/dl (70-220); POTASSIUM 5.2 mmol/L (3.5-5.1); SODIUM 134 mmol/L (135-144)
[2018-01-19 06:43] LABS: MAGNESIUM 1.1 mg/dl (1.7-2.5)
[2018-01-19 06:43] LABS: PHOSPHORUS 3.4 mg/dl (2.5-4.9)
[2018-01-19 06:49] LABS: CREATININE 3.43 mg/dl (0.44-1.00)
[2018-01-19] MEDS: Insulin NOVOLOG SS MILD Algorithm (SS with meals and bedtime) SC ×2 (07:31→11:30)
[2018-01-19 07:32] LABS: ANISOCYTOSIS 1+ (0-0); BAND NEUTROPHILS #M 6.9 10^3/ul (0.0-0.6); BAND NEUTROPHILS % (M) 37 % (0-4); BASOPHIL #M 0.1 10^3/ul (0.0-0.0); BASOPHILS % (M) 1 % (0-2); BURR CELLS 2+ (0-0); ERYTHROBLAST% (NRBC) (M) 1 % (0-0); HYPOCHROMASIA 1+ (0-0); LYMPHOCYTES #M 1.6 10^3/ul (0.8-2.9); LYMPHOCYTES % (M) 9 % (15-51); MONOCYTE #M 0.7 10^3/ul (0.3-0.9); MONOCYTES % (M) 4 % (0-11); PLATELET ESTIMATE NORMAL; PLATELET MORPHOLOGY COMMENT @See below; POIKILOCYTOSIS 3+ (0-0); POLYCHROMASIA 3+ (0-0); REACTIVE LYMPHOCYTES #M 0.1 10^3/ul (0.0-0.0); REACTIVE LYMPHOCYTES% (M) 1 % (0-0); SEG NEUT #M 10.3 10^3/ul (1.6-7.5); SEGMENTED NEUTROPHILS (M) % 48 % (39-77); SMUDGE%M 2 % (0-0); TARGET CELLS 1+ (0-0)
[2018-01-19] MEDS: MEGESTROL (40 MG/ML) 10ML CUP PO (09:00)
[2018-01-19] MEDS: ERYTHROMYCIN BASE (EC) 250 MG TAB PO (09:00)
[2018-01-19] MEDS: CIPROFLOXACIN 200 MG/D5W IVPB 100 ML IVPB (09:54)
[2018-01-19] MEDS: ENOXAPARIN 40 MG/0.4 ML SYG SC (10:15)
[2018-01-19] MEDS: SODIUM BICARBONATE (IV ADD) 50 MEQ in DEXTROSE 5% 1,000 ML IV (15:45)
[2018-01-19] MEDS ORDERED: ONDANSETRON 4 MG INJ IV (16:30)
[2018-01-19] MEDS ORDERED: ATROPINE 1% 5 ML OPH SL (16:30)
[2018-01-19] MEDS ORDERED: DIMETHICONE STICK TOP ×2 (16:30)
[2018-01-19] MEDS ORDERED: ARTIFICIAL TEARS 15 ML OPH BOTH EYES ×2 (16:30)
[2018-01-19] MEDS ORDERED: LORAZEPAM 2 MG INJ IV (16:30)
[2018-01-19] MEDS ORDERED: ALBUTEROL/IPRATROPIUM (NEB) 3 ML AMP HHN (16:30)
[2018-01-19] MEDS ORDERED: ACETAMINOPHEN 650 MG SUPP PR (16:30)
[2018-01-19] MEDS ORDERED: BISACODYL 10 MG SUPP PR (16:30)
[2018-01-19] MEDS ORDERED: MAGNESIUM SULFATE 3 GM in DEXTROSE 5% 100 ML IVPB (17:00)
[2018-01-19] MEDS: HYDROmorphONE 1 MG/ML SYG IV (17:35)
[2018-01-19] MEDS: LORAZEPAM 2 MG INJ IV (17:35)
[2018-01-19] MEDS: HYDROmorphONE 50 MG in DEXTROSE 5% 50 ML IV ×2 (17:50→21:26)
[2018-01-20] MEDS: HYDROmorphONE 50 MG in DEXTROSE 5% 50 ML IV ×2 (00:27→22:14)
== END 2018-01-21 12:55 | disposition expired | DRG 871 ==
LOC: 6WM 01-09 23:46 → MS1 01-20 01:39 → E/R 09:35 → 6WM 13:04
PROC: 0D798DZ Dilation of Duodenum with Intraluminal Device, Via Natural or Artificial Opening Endoscopic (ICD-10-PCS; principal; 2018-01-11 10:30)
PROC: 30233N1 Transfusion of Nonautologous Red Blood Cells into Peripheral Vein, Percutaneous Approach (ICD-10-PCS; 2018-01-11 11:20)
PROC: 5A09457 Assistance with Respiratory Ventilation, 24-96 Consecutive Hours, Continuous Positive Airway Pressure (ICD-10-PCS; 2018-01-11 11:20)
DX: A41.51 Sepsis due to Escherichia coli [E. coli] (principal); J96.01 Acute respiratory failure with hypoxia; I26.99 Other pulmonary embolism without acute cor pulmonale; G93.40 Encephalopathy, unspecified; N17.0 Acute kidney failure with tubular necrosis; C25.0 Malignant neoplasm of head of pancreas; C78.4 Secondary malignant neoplasm of small intestine; C78.7 Secondary malignant neoplasm of liver and intrahepatic bile duct; D62 Acute posthemorrhagic anemia; E44.0 Moderate protein-calorie malnutrition; E87.3 Alkalosis; E87.2 Acidosis; I82.401 Acute embolism and thrombosis of unspecified deep veins of right lower extremity; K31.1 Adult hypertrophic pyloric stenosis; K31.5 Obstruction of duodenum; K31.0 Acute dilatation of stomach; K80.33 Calculus of bile duct with acute cholangitis with obstruction; K92.2 Gastrointestinal hemorrhage, unspecified; R64 Cachexia; Z68.1 Body mass index [BMI] 19.9 or less, adult; R65.20 Severe sepsis without septic shock; E83.39 Other disorders of phosphorus metabolism; E87.6 Hypokalemia; E86.0 Dehydration; E11.9 Type 2 diabetes mellitus without complications; Z51.5 Encounter for palliative care; Z66 Do not resuscitate; Z96.89 Presence of other specified functional implants; Z87.891 Personal history of nicotine dependence; Z79.4 Long term (current) use of insulin
CPT/HCPCS: 36415; 36430; 36600; 71045; 74018; 74176; 74181; 74330; 76775; 80048; 80053; 81001; 82803; 82962; 83036; 83605; 83690; 83735; 84100; 84132; 85014; 85018; 85025; 85610; 85730; 86850; 86900; 86901; 86920; 87040; 87086; 93970; 94660; 94664; 96374; 96375; 99285-25; J1120